=== PATIENT | male | born 1940 | race African-American/Black ===

== ENCOUNTER 2016-11-14 09:45 | Emergency (ER) | payer BC, OTHER ==
[2016-11-14 09:55] VITALS: TEMP 98.1; BMI 25.8
[2016-11-14] MEDS ORDERED: ONDANSETRON 4 MG/2 ML VIAL ONE (10:30)
[2016-11-14] MEDS ORDERED: ONDANSETRON 4 MG/2 ML VIAL IVPUSH ONE (10:34)
--- NOTE | 2016-11-14 10:38 | PDOC ---
History of Present Illness - General History Source: Patient Exam Limitations: No Limitations - History of Present Illness Initial Comments: 11/14/16 10:52 The patient is a 76 year old male, with a significant past medical history of HTN and prostate CA (iIn remission past 2 years), who presents to the emergency department with a headache, nausea, vomit and diarrhea for the past 3 days. He also notes that his appetite has decreased. He describes his headache as ranging from mild to moderate, localized on the islam. He denies any radiation of the pain or modifying factors. He denies any visual changes. He states that he took Cialis medication prior to the onset of symptoms. He denies any history of headaches. He denies any recent travel or sick contacts. He does note that he has a family history of aneurysm. The patient denies chest pain, shortness of breath and dizziness. Denies fever, chills, and constipation. Denies dysuria, frequency, urgency and hematuria. Allergies: None Past surgical history: Prostate resection Social history: Alcohol use. Former smoker, pack a day smoker (20 year use)( Quit 20 years ago) <Shantanu Orozco - Last Filed: 11/14/16 10:52> <Yamileth Mccain - Last Filed: 11/14/16 15:57> - General Chief Complaint: Headache Stated Complaint: HEADACHE Time Seen by Provider: 11/14/16 10:23 Past History <Shantanu Orozco - Last Filed: 11/14/16 10:52> - Past Medical History Cancer: Yes (Prostate cancer) HTN: Yes - Psycho/Social/Smoking Cessation Hx Suicidal Ideation: No Smoking History: Former smoker Have you smoked in the past 12 months: No If you are a former smoker, when did you quit?: 20 yrs Information on smoking cessation initiated: No Hx Alcohol Use: Yes Drug/Substance Use Hx: No <Yamileth Mccain - Last Filed: 11/14/16 15:57> - Past Medical History Allergies/Adverse Reactions: Allergies Allergy/AdvReac Type Severity Reaction Status Date / Time No Known Allergies Allergy Verified 11/14/16 10:39 Home Medications: Ambulatory Orders Aspirin [ASA -] 81 mg PO DAILY 11/14/16 Lisinopril/Hydrochlorothiazide [Lisinopril-Hctz 20-12.5 mg Tab] 1 each PO DAILY 11/14/16 Review of Systems - Review of Systems Able to Perform ROS?: Yes Comments:: 11/14/16 10:53 GENERAL/CONSTITUTIONAL: No fever or chills. No weakness. HEAD, EYES, EARS, NOSE AND THROAT: No change in vision. No ear pain or discharge. No sore throat. CARDIOVASCULAR: No chest pain or shortness of breath RESPIRATORY: No cough, wheezing, or hemoptysis. GASTROINTESTINAL: (+) Nausea, vomiting, diarrhea. No constipation. GENITOURINARY: No dysuria, frequency, or change in urination. MUSCULOSKELETAL: No joint or muscle swelling or pain. No neck or back pain. SKIN: No rash NEUROLOGIC: (+) Headache. No vertigo, loss of consciousness, or change in strength/sensation. ENDOCRINE: No increased thirst. No abnormal weight change HEMATOLOGIC/LYMPHATIC: No anemia, easy bleeding, or history of blood clots. ALLERGIC/IMMUNOLOGIC: No hives or skin allergy. <Shantanu Orozco - Last Filed: 11/14/16 10:52> *Physical Exam - Vital Signs Last Vital Signs Temp Pulse Resp BP Pulse Ox 98.1 F 94 H 14 143/98 98 11/14/16 09:49 11/14/16 09:49 11/14/16 09:49 11/14/16 09:49 11/14/16 09:49 - Physical Exam Comments: 11/14/16 10:53 GENERAL: Awake, alert, and fully oriented, in no acute distress HEAD: No signs of trauma, normocephalic, atraumatic EYES: PERRLA, EOMI, sclera anicteric, conjunctiva clear ENT: Auricles normal inspection, hearing grossly normal, nares patent, oropharynx clear without exudates. Moist mucosa NECK: Normal ROM, supple, no lymphadenopathy, JVD, or masses LUNGS: No distress, speaks full sentences, clear to auscultation bilaterally HEART: Regular rate and rhythm, normal S1 and S2, no murmurs, rubs or gallops, peripheral pulses normal and equal bilaterally. ABDOMEN: Soft, nontender, normoactive bowel sounds. No guarding, no rebound. No masses EXTREMITIES: Normal inspection, Normal range of motion, no edema. No clubbing or cyanosis. NEUROLOGICAL: Cranial nerves II through XII grossly intact. Normal speech, normal gait, no focal sensorimotor deficits SKIN: Warm, Dry, normal turgor, no rashes or lesions noted. <Shantanu Orozco - Last Filed: 11/14/16 10:52> - Vital Signs Last Vital Signs Temp Pulse Resp BP Pulse Ox 98.1 F 94 H 14 143/98 98 11/14/16 09:49 11/14/16 09:49 11/14/16 09:49 11/14/16 09:49 11/14/16 09:49 <Yamileth Mccain - Last Filed: 11/14/16 15:57> ED Treatment Course - LABORATORY CBC & Chemistry Diagram: 11/14/16 10:37 11/14/16 10:37 <Shantanu Orozco - Last Filed: 11/14/16 10:52> - LABORATORY CBC & Chemistry Diagram: 11/14/16 10:37 11/14/16 10:37 <Yamileth Mccain - Last Filed: 11/14/16 15:57> Medical Decision Making - Medical Decision Making 11/14/16 15:53 Case d/w Dr. Rios, vascular surgery. He will evaluate. Recommended rheumatology evaluation in addition. I discussed with patient, who states that his has spinal stenosis, has difficulty walking, needs assistance to get home. I explained that if this is truly temporal arteritis, it may progress if not treated, may lead to blindness. He states that he can return to the hospital as soon as his is safely home. <Yamileth Mccain - Last Filed: 11/14/16 15:57> *DC/Admit/Observation/Transfer - Attestations Scribe Attestion: 11/14/16 10:53 Documentation prepared by Shantanu Orozco, acting as medical secretary receptionist for Yamileth Mccain MD <Shantanu Orozco - Last Filed: 11/14/16 10:52> - Discharge Dispostion Admit: No <Yamileth Mccain - Last Filed: 11/14/16 15:57> Diagnosis at time of Disposition: Headache Qualifiers: Headache type: unspecified Headache chronicity pattern: acute headache Intractability: not intractable Qualified Code(s): R51 - Headache - Discharge Dispostion Disposition: AGAINST MEDICAL ADVICE Condition at time of disposition: Stable - Patient Instructions Printed Discharge Instructions: DI for Headache Additional Instructions: PLEASE RETURN TO EMERGENCY DEPARTMENT IMMEDIATELY TO BE ADMITTED TO HOSPITAL
[2016-11-14 10:51] LABS: BASOPHIL 0.4 % (0-2.0); EOSINOPHIL 0.2 % (0-4.5); MCH 30.5 pg (25.7-33.7); MCHC 33.8 g/dl (32.0-35.9); MEAN CELL VOLUME 90.3 fl (80-96); MEAN PLT VOLUME 8.9 fl (7.5-11.1); PLATELET COUNT 225 K/MM3 (134-434); RDW 15.5 % (11.9-15.9); WHITE BLOOD COUNT 8.8 K/mm3 (4.0-10.0)
[2016-11-14 11:12] LABS: ALBUMIN 4.5 g/dl (3.4-5.0); ALK PHOS 80 U/L (45-117); BILIRUBIN,TOTAL 0.7 mg/dL (0.2-1.0); CALCIUM 9.8 mg/dL (8.5-10.1); CO2 27 mmol/L (21-32); CREATININE 2.3 mg/dL (0.7-1.3); GLUCOSE,RANDOM 142 mg/dL (74-106); SGPT/ALT 25 U/L (12-78); TOT PROT 8.4 g/dl (6.4-8.2)
[2016-11-14 11:19] LABS: SGOT/AST 45 U/L (15-37)
[2016-11-14 11:29] LABS: URINE APPEARANCE CLEAR; URINE BILIRUBIN NEGATIVE (NEGATIVE); URINE BLOOD 1+ (NEGATIVE); URINE COLOR YELLOW; URINE GLUCOSE (UA) NEGATIVE (NEGATIVE); URINE KETONE TRACE (NEGATIVE); URINE LEUK ESTERASE NEGATIVE (NEGATIVE); URINE NITRITE NEGATIVE (NEGATIVE); URINE UROBILINOGEN NEGATIVE mg/dL (0.2-1.0)
[2016-11-14 11:47] LABS: URINE PROTEIN 1+ (NEGATIVE)
[2016-11-14 11:49] LABS: URINE HYALINE CAST 1 /lpf; URINE RBC 2 /hpf (0-3); URINE WBC 1 /hpf (3-5)
[2016-11-14 12:36] LABS: ANION GAP 12 (8-16)
[2016-11-14] MEDS ORDERED: ACETAMINOPHEN 1000 MG/100 ML VIAL (NON FORMULARY) IVPB ONE (13:37)
[2016-11-14 15:45] LABS: C-REACTIVE PROTEIN < 0.3 MG/DL (0.00-0.3)
[2016-11-14 15:58] VITALS: BP 142/92; PULSE 89
--- NOTE | 2016-11-15 17:13 | CONSULT ---
Consult Consult Specialty:: Rheumatology - History of Present Illness History of Present Illness: 76yo male with history of prostate cancer in remission and hypertension, admitted with headache in the left temporal region. HPI. The patient reports that 4 days ago he developed severe throbbing pain in the left temporal region accompanied by nausea and diarrhea that lasted 2 days. He did not respond to aspirin and came yesterday to the ER. Laboratory work- up revealed ESR of 35. Yesterday he improved partially with Acetaminophen and in the evening he received Prednisone 60 mg/d. He also received Zofran - nausea resolved. Today he has had only mild discomfort in the temporal region. He denies joint pain, hjaw pain, jaw claudication, changes in his vision, general malaise, shortness of breath or fever. CT scan of the head reported with no acute intracranial pathology. No change compared to 01/24/09 study: diffuse right mastoid and right ear cavity fluid opacification. - History Source History Provided By: Patient Limitations to Obtaining History: No Limitations - Past Medical History Cardio/Vascular: Yes: HTN - Alcohol/Substance Use Hx Alcohol Use: Yes - Smoking History Smoking history: Former smoker Have you smoked in the past 12 months: No If you are a former smoker, when did you quit?: 20 yrs Home Medications - Allergies Allergies/Adverse Reactions: Allergies Allergy/AdvReac Type Severity Reaction Status Date / Time No Known Allergies Allergy Verified 11/14/16 18:44 - Home Medications Home Medications: Ambulatory Orders Aspirin [ASA -] 81 mg PO DAILY 11/14/16 Lisinopril/Hydrochlorothiazide [Lisinopril-Hctz 20-12.5 mg Tab] 1 each PO DAILY 11/14/16 Family Disease History - Family Disease History Other Family History: History of brain aneurysms in his family Review of Systems - Review of Systems Constitutional: reports: No Symptoms Eyes: reports: No Symptoms Neck: reports: No Symptoms Cardiovascular: reports: No Symptoms Gastrointestinal: reports: Diarrhea, Nausea, Vomiting Genitourinary: reports: No Symptoms Musculoskeletal: reports: No Symptoms Neurological: reports: Other (See HPI) Physical Exam Vital Signs: Vital Signs Temperature 98.1 F 11/14/16 09:49 Pulse Rate 89 11/14/16 15:57 Respiratory Rate 20 11/14/16 15:57 Blood Pressure 142/92 11/14/16 15:57 O2 Sat by Pulse Oximetry (%) 98 11/14/16 15:57 Constitutional: Yes: No Distress Eyes: Yes: WNL HENT: Yes: WNL Neck: Yes: WNL Cardiovascular: Yes: WNL Respiratory: Yes: WNL Gastrointestinal: Yes: WNL Musculoskeletal: Yes: Other (Temporal arteries normal in consistency and pulsation and not tender. No active joints.) Neurological: Yes: WNL Labs: CBC, BMP 11/14/16 10:37 11/14/16 10:37 Problem List - Problems (1) Temporal headache Assessment/Plan: Four day history of temporal headache, nausea, vomiting, diarrhea and ESR of 35. Etiology to be determined. Temporal arteritis is a possibility, however not very likely. The patient is scheduled to have a temporal artery biopsy tomorrow and he is on Prednisone 60 mg/d. After the biopsy, as outpatient, evaluate tapering down steroids. Code(s): R51 - HEADACHE
== END 2016-11-14 15:50 | disposition left against medical advice (07) ==
LOC: JER 09:45
PROC: 3E033NZ Introduction of Analgesics, Hypnotics, Sedatives into Peripheral Vein, Percutaneous Approach (ICD-10-PCS; principal; 2016-11-14)
PROC: 3E033GC Introduction of Other Therapeutic Substance into Peripheral Vein, Percutaneous Approach (ICD-10-PCS; 2016-11-14)
DX: R51 Headache (principal)
CPT/HCPCS: 36415; 70450-TC; 80053; 81003; 81015; 83690; 85025; 85651; 86140; 87086; 96374; 96375; 99283-25

== ENCOUNTER 2016-11-14 18:35 | Inpatient (IN) | payer OTHER ==
--- NOTE | 2016-11-14 20:31 | PDOC ---
History of Present Illness - General Chief Complaint: Headache Stated Complaint: PCP ADMIT Time Seen by Provider: 11/14/16 20:08 Past History - Past Medical History Allergies/Adverse Reactions: Allergies Allergy/AdvReac Type Severity Reaction Status Date / Time No Known Allergies Allergy Verified 11/14/16 18:44 Home Medications: Ambulatory Orders Aspirin [ASA -] 81 mg PO DAILY 11/14/16 Lisinopril/Hydrochlorothiazide [Lisinopril-Hctz 20-12.5 mg Tab] 1 each PO DAILY 11/14/16 Cancer: Yes (Prostate cancer) HTN: Yes - Psycho/Social/Smoking Cessation Hx Suicidal Ideation: No Smoking History: Former smoker Have you smoked in the past 12 months: No If you are a former smoker, when did you quit?: 20 yrs Information on smoking cessation initiated: No Hx Alcohol Use: Yes Drug/Substance Use Hx: No Substance Use Type: None *Physical Exam - Vital Signs Last Vital Signs Temp Pulse Resp BP Pulse Ox 98 F 89 14 153/90 100 11/14/16 18:38 11/14/16 18:38 11/14/16 18:38 11/14/16 18:38 11/14/16 18:38 *DC/Admit/Observation/Transfer Diagnosis at time of Disposition: Temporal headache Headache Qualifiers: Headache type: primary stabbing headache Qualified Code(s): G44.85 - Primary stabbing headache - Discharge Dispostion Admit: Yes
[2016-11-14] MEDS ORDERED: predniSONE 20 MG TABLET (UD) PO ONE (20:43)
--- NOTE | 2016-11-14 20:49 | PN ---
Teaching Attending Note Name of Resident: Ankur Taveras ATTENDING PHYSICIAN STATEMENT I saw and evaluated the patient. I reviewed the resident's note and discussed the case with the resident. I agree with the resident's findings and plan as documented. SUBJECTIVE: 76 M with pmhx of prostate ca, hld, htn . States he had a headache since Sunday. Notes MCKINLEY is concentrated in L. Temporal area. States he has no visual changes or visual loss. No cp or pressure. No n/v/d. Notes that his pain was relieved in ED, but has started to come back. OBJECTIVE: Physical: VS: Vital Signs Period Temp Pulse Resp BP Sys/Yusuf Pulse Ox Last 24 Hr 98 F 89 14 153/90 100 GEN: NADM, Resting in bed HEENT: NCAT, PERRL, Throat without erythema or exudates CARD: RRR S1, S2 RESP: CTAB ABD: BSX4, NTD to palpation EXT:-C/C/E LABS Done in AM 11/14, noted in chart ESR 35 CR 2. Home Medications Medication Instructions Recorded Aspirin [ASA -] 81 mg PO DAILY 11/14/16 Lisinopril/Hydrochlorothiazide 1 each PO DAILY 11/14/16 [Lisinopril-Hctz 20-12.5 mg Tab] ASSESSMENT AND PLAN: 76 M with pmxh of who presents with MCKINLEY located in the Temporal area, being admitted for Temporal Arteritis 1.) Temporal Arteritis - Prednisone 60mg X1 - Vascular consult - Asa 81mg - Type and screen 2.) HTN - C/W home meds 3.) CKD - Base Cr 2.3 4.) Dvt Ppx - Low- Mod risk - SCD Place in Med- SX
[2016-11-14] MEDS ORDERED: ACETAMINOPHEN 325 MG TABLET (FP) PO PRN (20:51)
[2016-11-14] MEDS ORDERED: predniSONE 20 MG TABLET (UD) ONE (21:10)
--- NOTE | 2016-11-14 21:46 | HP ---
CHIEF COMPLAINT: PCP: HISTORY OF PRESENT ILLNESS: Pt is a 76yo M with a history of prostate cancer in remission (s/p TURP and radiation therapy), hypertension, hyperlipidemia and a significant family history of brain aneurysms presents to the ED due to stabbing L headaches temporally located. He states the pain first started on Sunday (11/11) however did not come to the ER until now due to increasing pain. He states he took an extra strength Tylenol on 11/12 and 11/13 that did NOT help the pain at all. He originally had nausea, however it is currently resolved after Zofran being administered. He denies any neck pain, back pain, focal neuro deficits, constitutional symptoms, hearing changes, and visual disturbances ER course was notable for: (1) Prednisone 60mg administered ONCE (2) Zofran 4mg IVP, Acetaminophen 1000mg once (3) CBC, CMP revealing Cr of 2.3 (last known Cr of 2.3 in 2014) and ESR 35 (4) Head CT without contrast -- No evidence of acute intracranial pathology; in comparison of 2009 study, diffuse right mastoid and right middle ear cavity fluid opacification noted once again Recent Travel: Denies PAST MEDICAL HISTORY: Hypertension Hyperlipidemia Prostate Cancer (dx'd 2014) s/p TURP and radiation therapy PAST SURGICAL HISTORY: TURP Rotator Cuff repair (L side; 2006) Social History: Smoking: Alcohol: Drugs: Family History: Mother -- -- "brain aneurysm" Sister -- alive -- "Brain aneurysm" x2 s/p interventions Allergies No Known Allergies Allergy (Verified 11/14/16 18:44) HOME MEDICATIONS: Home Medications Medication Instructions Recorded Aspirin [ASA -] 81 mg PO DAILY 11/14/16 Lisinopril/Hydrochlorothiazide 1 each PO DAILY 11/14/16 [Lisinopril-Hctz 20-12.5 mg Tab] REVIEW OF SYSTEMS CONSTITUTIONAL: Absent: fever, chills, diaphoresis, generalized weakness, malaise, loss of appetite, weight change HEENT: Absent: rhinorrhea, nasal congestion, throat pain, throat swelling, difficulty swallowing, mouth swelling, ear pain, eye pain, visual changes CARDIOVASCULAR: Absent: chest pain, syncope, palpitations, irregular heart rate, lightheadedness , peripheral edema RESPIRATORY: Absent: cough, shortness of breath, dyspnea with exertion, orthopnea, wheezing, stridor, hemoptysis GASTROINTESTINAL: Absent: abdominal pain, abdominal distension, nausea, vomiting, diarrhea, constipation, melena, hematochezia GENITOURINARY: Absent: dysuria, frequency, urgency, hesitancy, hematuria, flank pain, genital pain MUSCULOSKELETAL: Absent: myalgia, arthralgia, joint swelling, back pain, neck pain SKIN: Absent: rash, itching, pallor NEUROLOGIC: Absent: focal weakness or paresthesias, dizziness, unsteady gait PHYSICAL EXAMINATION GENERAL: Awake, alert, and fully oriented, in no acute distress. HEAD: Normal with no signs of trauma. Pain with palpation to left temporal area. EYES: Pupils equal, round and reactive to light, extraocular movements intact, peripheral visual irizarry intact EARS, NOSE, THROAT: Moist mucous membranes. NECK: Normal range of motion. No JVD LUNGS: Breath sounds equal, clear to auscultation bilaterally. No wheezes, and no crackles. No accessory muscle use. HEART: Regular rate and rhythm, normal S1 and S2 without murmur, rub or gallop. ABDOMEN: Soft, nontender, not distended, normoactive bowel sounds, no guarding, no rebound, no masses. No hepatomegaly or splenomegaly. NEUROLOGICAL: No focal neurological deficits appreciated. AO x3. PSYCHIATRIC: Cooperative. Appropriate mood and affect. SKIN: Warm, dry, normal turgor, no rashes or lesions noted ASSESSMENT/PLAN: 76yo M with nonradiating L stabbing temporal pain unrelieved by Tylenol. Denies visual changes. Family history of multiple brain aneurysms; CT negative for acute intracranial pathology 1) Suspected Temporal arteritis; ESR 35 --Prednisone 60mg PO qDaily --Consulted Dr. Chaparro Rios for L temporal artery biopsy --Will be NPO after midnight --SCDs applied both legs 2) Elevated Cr --Cr 2.3; previous known to be 2.3 in 2015 --Stable; most likely from previous prostate Ca and interventions FEN Fluids: Pt PO tolerating Electrolytes: No electrolyte abnormalities Nutrition: Full Diet currently; NPO after midnight PPX DVT: SCDs applied both legs GI: not needed at current time Dispo: Admit M/S floor for Biopsy tomorrow Visit type - Emergency Visit Emergency Visit: Yes ED Registration Date: 11/14/16 Care time: The patient presented to the Emergency Department on the above date and was hospitalized for further evaluation of their emergent condition. - New Patient This patient is new to me today: Yes Date on this admission: 11/14/16 - Critical Care Critical Care patient: No
[2016-11-14 23:57] VITALS: BMI 24.7
[2016-11-15 08:29] LABS: BASOPHIL 0.1 % (0-2.0); MCH 30.7 pg (25.7-33.7); MCHC 34.4 g/dl (32.0-35.9); MEAN CELL VOLUME 89.1 fl (80-96); MEAN PLT VOLUME 8.5 fl (7.5-11.1); NEUTROPHILS 89.9 % (42.8-82.8); PLATELET COUNT 198 K/MM3 (134-434); RDW 14.9 % (11.9-15.9); WHITE BLOOD COUNT 6.5 K/mm3 (4.0-10.0)
[2016-11-15 08:40] LABS: INR 1.12 (0.82-1.09); PROTHROMBIN TIME (PATIENT) 12.4 SEC (9.98-11.88)
--- NOTE | 2016-11-15 08:42 | MSN ---
Progress Note (short form) - Note Progress Note: Pt seen and examined at bedside, no acute overnight events. States his L temporal pain is much improved, rates pain 2/10 (from 7/10 on admission). States he has tinnitus but this is unchanged from baseline. Denies new or worsening h/a, chest pain, SOB, palpitations, nausea, vomiting, extremity numbness or tingling or leg pain. States he has some belly pain but blames it on not eating for the last 12 hrs. Last Vital Signs Temp Pulse Resp BP Pulse Ox 98.1 F 74 18 142/76 98 11/15/16 07:59 11/15/16 07:59 11/15/16 07:59 11/15/16 07:59 11/14/16 23:00 PE: Constitutional: AO x3, in no acute distress Head: atraumatic, normocephalic, moist mucus membranes Eyes: EOM intact, PERRLA Heart: RRR Lungs: expiratory low pitched wheezing diffusely Abd: mild tenderness elicited with palpation, normoactive bowel sounds in all 4 quadrants, no hepto/splenomegaly appreciated Extremities: 2+ radial pulses b/l, 2+ DP pulses b/l, no LE edema Laboratory Results - last 24 hr 11/15/16 11/15/16 11/15/16 06:30 06:30 06:30 WBC 6.5 RBC 4.02 Hgb 12.3 Hct 35.8 MCV 89.1 MCH 30.7 MCHC 34.4 RDW 14.9 Plt Count 198 MPV 8.5 Neutrophils % 89.9 H Lymphocytes % 7.9 L Monocytes % 2.1 L Eosinophils % 0.0 D Basophils % 0.1 INR 1.12 PTT (Actin FS) 28.3 Sodium 139 Potassium 3.8 Chloride 102 Carbon Dioxide 28 Anion Gap 9 BUN 23 H Creatinine 2.0 H Random Glucose 134 H Calcium 9.0 Triglycerides 58 Cholesterol 235 H Total LDL Cholesterol 160 H HDL Cholesterol 54 Urine Protein Urine Creatinine 11/15/16 11/15/16 11/15/16 08:55 11:47 11:47 WBC RBC Hgb Hct MCV MCH MCHC RDW Plt Count MPV Neutrophils % Lymphocytes % Monocytes % Eosinophils % Basophils % INR PTT (Actin FS) Sodium Potassium Chloride Carbon Dioxide Anion Gap BUN Creatinine Random Glucose Calcium Triglycerides Cancelled Cholesterol Cancelled Total LDL Cholesterol Cancelled HDL Cholesterol Cancelled Urine Protein 52 Urine Creatinine 317.0 Assessment: 76 y.o. M with PHMX of HTN, HLD, prostate cancer (s/p TURP and radiation) presented to the ED for stabbing temporal h/a, admitted for temporal artery biopsy and pain management. Plan: 1. Temporal headache: possible due to temporal arteritis vs migraine vs tension h/a vs cluster h/a. Dr. Marr (rheumatology) and Dr. Rios (vascular surgery) consulted for biopsy, cont prednisone 60mg 2. SAE: possible elevated baseline creatinine vs vasculitis affecting the kidneys, creatinine improved from 2.3 to 2.0. Will contact pt PCP for baseline creatinine level, ordered urine electrolytes to discover if pre/post renal injury 3. DVT prophylaxis: SCDs both legs 4. HLD: cholesterol 235, LDL 160, HDL 54, TG 58. Cardiovascular risk calculated at 29% w/out statin and 9% w/mod-high intensity statin. Discussed with patient, states he has had elevated levels in the past and is currently trying to manage with diet and exercise.
[2016-11-15 08:43] LABS: ACTIVATED PTT 28.3 SECONDS (26.9-34.4)
[2016-11-15 09:01] LABS: ANION GAP 9 (8-16); CO2 28 mmol/L (21-32); GLUCOSE,RANDOM 134 mg/dL (74-106)
[2016-11-15 09:24] LABS: CHOLESTEROL 235 mg/dL (50-200)
[2016-11-15 09:26] LABS: LDL CHOLESTEROL (ONLY SJRH) 160 mg/dL (5-100)
[2016-11-15] MEDS: HYDROCHLOROTHIAZIDE 12.5 MG CAPSULE (FP) PO SCH (10:05)
[2016-11-15] MEDS: ASPIRIN 81 MG CHEWABLE TABLETS PO SCH (10:05)
[2016-11-15] MEDS: LISINOPRIL 20 MG TABLET (FP) PO SCH (10:05)
--- NOTE | 2016-11-15 15:53 | PN ---
Physical Exam: SUBJECTIVE: Patient seen and examined No acute overnight events. Left temporal pain has improved on prednisone. OBJECTIVE: Vital Signs Period Temp Pulse Resp BP Sys/Yusuf Pulse Ox Last 24 Hr 97.9 F-98.1 F 64-78 16-18 142-150/76-77 97-98 GENERAL: Awake, alert, and fully oriented, in no acute distress. HEAD: Normal with no signs of trauma. Pain with palpation to left temporal area. EYES: Pupils equal, round and reactive to light, extraocular movements intact, peripheral visual irizarry intact EARS, NOSE, THROAT: Moist mucous membranes. NECK: Normal range of motion. No JVD LUNGS: Breath sounds equal, clear to auscultation bilaterally. mild expiratory wheezing. No crackles. No accessory muscle use. HEART: Regular rate and rhythm, normal S1 and S2 without murmur, rub or gallop. ABDOMEN: Soft, nontender, not distended, normoactive bowel sounds, no guarding, no rebound, no masses. No hepatomegaly or splenomegaly. NEUROLOGICAL: No focal neurological deficits appreciated. A&O x3. PSYCHIATRIC: Cooperative. Appropriate mood and affect. SKIN: Warm, dry, normal turgor, no rashes or lesions noted Laboratory Results - last 24 hr 11/15/16 11/15/16 11/15/16 06:30 06:30 06:30 WBC 6.5 RBC 4.02 Hgb 12.3 Hct 35.8 MCV 89.1 MCH 30.7 MCHC 34.4 RDW 14.9 Plt Count 198 MPV 8.5 Neutrophils % 89.9 H Lymphocytes % 7.9 L Monocytes % 2.1 L Eosinophils % 0.0 D Basophils % 0.1 INR 1.12 PTT (Actin FS) 28.3 Sodium 139 Potassium 3.8 Chloride 102 Carbon Dioxide 28 Anion Gap 9 BUN 23 H Creatinine 2.0 H Random Glucose 134 H Calcium 9.0 Triglycerides 58 Cholesterol 235 H Total LDL Cholesterol 160 H HDL Cholesterol 54 Urine Protein 11/15/16 11/15/16 08:55 11:47 WBC RBC Hgb Hct MCV MCH MCHC RDW Plt Count MPV Neutrophils % Lymphocytes % Monocytes % Eosinophils % Basophils % INR PTT (Actin FS) Sodium Potassium Chloride Carbon Dioxide Anion Gap BUN Creatinine Random Glucose Calcium Triglycerides Cancelled Cholesterol Cancelled Total LDL Cholesterol Cancelled HDL Cholesterol Cancelled Urine Protein 52 Active Medications Generic Name Dose Route Start Last Admin Trade Name Freq PRN Reason Stop Dose Admin Acetaminophen 650 mg 11/14/16 20:51 Tylenol - PO Q4H PRN FEVER OR PAIN Aspirin 81 mg 11/15/16 10:00 11/15/16 10:05 Asa - PO 81 mg DAILY NEHEMIAS Administration Hydrochlorothiazide 12.5 mg 11/15/16 10:00 11/15/16 10:05 Hctz - PO 12.5 mg DAILY NEHEMIAS Administration Lisinopril 20 mg 11/15/16 10:00 11/15/16 10:05 Prinivil PO 20 mg DAILY NEHEMIAS Administration Prednisone 60 mg 11/15/16 20:00 Deltasone - PO DAILY NEHEMIAS ASSESSMENT/PLAN: 76 yo M with pmh of HTN, HLD, prostate cancer (s/p TURP and radiation) presented to the ED for temporal headache with an ESR of 35 admitted for possible temporal arteritis. Problem List - Problems (1) Temporal headache Assessment/Plan: Continue Prednisone 60 mg Vascular and Rheum consulted, Dr. Rios/[facility] Will f/u regarding potential biopsy. (2) SAE (acute kidney injury) Assessment/Plan: Creatinine improved from 2.3 to 2.0 Unsure of baseline Will call PMD tomorrow to see baseline whether this is SAE vs CKD. Urine studies ordered (3) HLD (hyperlipidemia) Assessment/Plan: Cholesterol 235 LDL 160 Pt has hx of hld on diet and exercise therapy. Will f/u outpatient with PCP. (4) DVT prophylaxis Assessment/Plan: SCDs both legs FEN/GI No fluids Electrolytes wnl NPO for possible procedure awaiting Dr. Rios Visit type - Emergency Visit Emergency Visit: No - New Patient This patient is new to me today: Yes Date on this admission: 11/15/16 - Critical Care Critical Care patient: No
--- NOTE | 2016-11-15 17:16 | PN ---
Teaching Attending Note Name of Resident: Alexis Rob ATTENDING PHYSICIAN STATEMENT I saw and evaluated the patient. I reviewed the resident's note and discussed the case with the resident. I agree with the resident's findings and plan as documented. SUBJECTIVE: Pain is much better. OBJECTIVE: Vital Signs Period Temp Pulse Resp BP Sys/Yusuf Pulse Ox Last 24 Hr 97.9 F-98.1 F 64-89 14-18 142-153/76-90 97-100 ASSESSMENT AND PLAN: This is a 76-year-old man with a history of HTN, hyperlipidemia, CKD, prostate cancer who presented to the ER with a temporal headache. 1. Possible temporal arteritis - Headache is better with Prednisone - Continue aspirin, Prednisone - Vascular surgery consult for biopsy - Rheumatology consult 2. HTN - Continue Lisinopril, HCTZ 3. Hyperlipidemia 4. Stage 4 CKD - Stable 5. Prostate cancer, history of prostatectomy
[2016-11-15] MEDS: predniSONE 20 MG TABLET (UD) PO SCH (19:54)
--- NOTE | 2016-11-15 20:35 | CONSULT ---
Consult - Alcohol/Substance Use Hx Alcohol Use: Yes - Smoking History Smoking history: Former smoker Have you smoked in the past 12 months: No If you are a former smoker, when did you quit?: 20 yrs Home Medications - Allergies Allergies/Adverse Reactions: Allergies Allergy/AdvReac Type Severity Reaction Status Date / Time No Known Allergies Allergy Verified 11/14/16 18:44 - Home Medications Home Medications: Ambulatory Orders Aspirin [ASA -] 81 mg PO DAILY 11/14/16 Lisinopril/Hydrochlorothiazide [Lisinopril-Hctz 20-12.5 mg Tab] 1 each PO DAILY 11/14/16 Physical Exam Vital Signs: Vital Signs Temperature 98.0 F 11/15/16 15:36 Pulse Rate 78 11/15/16 15:36 Respiratory Rate 18 11/15/16 15:36 Blood Pressure 150/77 11/15/16 08:41 O2 Sat by Pulse Oximetry (%) 97 11/15/16 09:00 Labs: CBC, BMP 11/15/16 06:30 11/15/16 06:30 Assessment/Plan Vascular Surgery Pt is a 76yo M with a history of prostate cancer in remission (s/p TURP and radiation therapy), hypertension, hyperlipidemia and a significant family history of brain aneurysms presents to the ED due to stabbing L headaches temporally located. He states the pain first started on Sunday (11/11) however did not come to the ER until now due to increasing pain. He states he took an extra strength Tylenol on 11/12 and 11/13 that did NOT help the pain at all. He originally had nausea, however it is currently resolved after Zofran being administered. He denies any neck pain, back pain, focal neuro deficits, constitutional symptoms, hearing changes, and visual disturbances ER course was notable for: (1) Prednisone 60mg administered ONCE (2) Zofran 4mg IVP, Acetaminophen 1000mg once (3) CBC, CMP revealing Cr of 2.3 (last known Cr of 2.3 in 2014) and ESR 35 (4) Head CT without contrast -- No evidence of acute intracranial pathology; in comparison of 2009 study, diffuse right mastoid and right middle ear cavity fluid opacification noted once again Recent Travel: Denies PAST MEDICAL HISTORY: Hypertension Hyperlipidemia Prostate Cancer (dx'd 2014) s/p TURP and radiation therapy PAST SURGICAL HISTORY: TURP Rotator Cuff repair (L side; 2006) Social History: Smoking: Alcohol: Drugs: Family History: Mother -- -- "brain aneurysm" Sister -- alive -- "Brain aneurysm" x2 s/p interventions Allergies No Known Allergies Allergy (Verified 11/14/16 18:44) HOME MEDICATIONS: Home Medications Medication Instructions Recorded Aspirin [ASA -] 81 mg PO DAILY 11/14/16 Lisinopril/Hydrochlorothiazide 1 each PO DAILY 11/14/16 [Lisinopril-Hctz 20-12.5 mg Tab] PE Head - NC/AT Lung - cTA Heart - rRR abd - soft,nt,nd ext - warm , pink. A/P Left sided headaches. On prednisone. Will need temporal artery biopsy in am. Elevated ESR Vin Rios DO
[2016-11-16] MEDS ORDERED: LIDOCAINE HCL 1%, 10 MG/ML (50 mL VIAL) IJ ONE
[2016-11-16 08:00] LABS: BASOPHIL 0.1 % (0-2.0); MCH 30.8 pg (25.7-33.7); MCHC 33.9 g/dl (32.0-35.9); MEAN PLT VOLUME 8.7 fl (7.5-11.1); NEUTROPHILS 91.3 % (42.8-82.8); PLATELET COUNT 225 K/MM3 (134-434)
[2016-11-16 08:48] LABS: ANION GAP 10 (8-16); CALCIUM 10.1 mg/dL (8.5-10.1); CO2 27 mmol/L (21-32); CREATININE 2.2 mg/dL (0.7-1.3); GLUCOSE,RANDOM 138 mg/dL (74-106)
[2016-11-16] MEDS: LISINOPRIL 20 MG TABLET (FP) PO SCH (09:47)
[2016-11-16] MEDS: ASPIRIN 81 MG CHEWABLE TABLETS PO SCH (09:47)
[2016-11-16] MEDS: HYDROCHLOROTHIAZIDE 12.5 MG CAPSULE (FP) PO SCH (09:47)
[2016-11-16] MEDS: predniSONE 20 MG TABLET (UD) PO SCH (09:47)
[2016-11-16] MEDS ORDERED: PROMETHAZINE HCL 25 MG/1 ML VIAL IVPUSH PRN ×2 (12:28→14:51)
[2016-11-16] MEDS ORDERED: ONDANSETRON 4 MG/2 ML VIAL IVPUSH PRN ×2 (12:28→14:51)
[2016-11-16] MEDS ORDERED: LACTATED RINGERS SOLUTION 1,000 ML IV SCH ×2 (12:30→14:51)
[2016-11-16] MEDS ORDERED: MIDAZOLAM HCL 2 MG/2 ML SINGLE DOSE VIAL ONE (12:49)
[2016-11-16] MEDS ORDERED: LIDOCAINE HCL 1%, 10 MG/ML (20ML VIAL) ONE (13:39)
--- NOTE | 2016-11-16 14:05 | MSN ---
Progress Note (short form) - Note Progress Note: Pt seen and examined at bedside, no acute overnight events. Pt states he is feeling much better, denies any new or worsening h/a. Denies any chest pain, SOB , palpitations, nausea or vomiting, changes in vision or blurry vision. Last Vital Signs Temp Pulse Resp BP Pulse Ox 97.9 F 70 18 146/89 98 11/16/16 08:39 11/16/16 08:39 11/16/16 08:39 11/16/16 08:39 11/16/16 09:00 PE: Constitutional: Resting comfortably, in no acute distress. A&Ox3 Head: atraumatic normocephalic Eyes: PERRLA, EOM intact Heart: RRR Lungs: expiratory rhonic in the bases- L>R, improved from yesterday Laboratory Results - last 24 hr 11/15/16 11/15/16 11/16/16 11:47 11:47 06:30 WBC 10.0 D RBC 4.21 Hgb 13.0 Hct 38.3 MCV 91.0 MCH 30.8 MCHC 33.9 RDW 15.0 Plt Count 225 MPV 8.7 Neutrophils % 91.3 H Lymphocytes % 5.4 L D Monocytes % 3.2 L Eosinophils % 0.0 Basophils % 0.1 Sodium Potassium Chloride Carbon Dioxide Anion Gap BUN Creatinine Random Glucose Calcium Urine Protein 52 Urine Creatinine 317.0 11/16/16 06:30 WBC RBC Hgb Hct MCV MCH MCHC RDW Plt Count MPV Neutrophils % Lymphocytes % Monocytes % Eosinophils % Basophils % Sodium 140 Potassium 4.1 Chloride 103 Carbon Dioxide 27 Anion Gap 10 BUN 35 H D Creatinine 2.2 H Random Glucose 138 H Calcium 10.1 Urine Protein Urine Creatinine Assessment: 76 y.o. M with PMHx of prostate Ca (s/p TURP and radiation), HTN, and HLD, presented to the ED for severe temporal h/a, nausea, and vomiting; was admitted for temporal artery biopsy. Plan: 1. Temporal h/a: due to temporal arteritis (mildly elevated ESR + symptoms + age ) vs tension h/a vs migraine vs cluster h/a. Dr. Chapin consulted, agreed with biopsy and will follow up out pt, Dr. Rios performing the biopsy later today. Cont prednisone 60mg 2. SAE: possible that pt baseline creatinine is around 2.0, contact PCP and waiting to hear back. Urine electrolytes ordered to assess whether pre, post or medullary renal injury (FENa). - left a message for Dr. Schroeder at 2:00, and [phone] 3. HLD: Based on lipid panel cardiovascular risk calculated at 29% w/out statin and 9% w/mod-high intensity statin. Discussed with patient, will follow up out pt with PCP. 4. DVT prophylaxis: SCDs both legs
--- NOTE | 2016-11-16 14:22 | OP ---
Operative Note - Note: Operative Date: 11/16/16 Pre-Operative Diagnosis: R/O temporal arteritis Operation: left temporal artery biopsy Post-Operative Diagnosis: Same as Pre-op Surgeon: Vin Rios Anesthesia: Fractional Estimated Blood Loss (mls): 10 Operative Report Dictated: Yes
--- NOTE | 2016-11-16 14:39 | PN ---
Teaching Attending Note Name of Resident: Alexis Rob ATTENDING PHYSICIAN STATEMENT I saw and evaluated the patient. I reviewed the resident's note and discussed the case with the resident. I agree with the resident's findings and plan as documented. SUBJECTIVE: Patient had no complaints this morning. No further headache. OBJECTIVE: Vital Signs Period Temp Pulse Resp BP Sys/Yusuf Pulse Ox Last 24 Hr 97.9 F-98.4 F 70-83 18-20 146-152/88-97 97-98 HEART: S1S2, RRR LUNGS: Clear ABDOMEN: Soft, non-tender, non-distended normal BS EXTREMITIES: No edema ASSESSMENT AND PLAN: This is a 76-year-old man with a history of HTN, hyperlipidemia, CKD, prostate cancer who presented to the ER with a temporal headache. 1. Possible temporal arteritis - Headache is better with Prednisone - Continue aspirin, Prednisone - Left temporal artery biopsy done today 2. HTN - Continue Lisinopril, HCTZ 3. Hyperlipidemia 4. Stage 4 CKD - Stable 5. Prostate cancer, history of prostatectomy
[2016-11-16] MEDS ORDERED: ACETAMINOPHEN 325 MG TABLET (FP) PO PRN (14:51)
[2016-11-16 15:06] VITALS: BP 158/84; PULSE 62; TEMP 97.4
--- NOTE | 2016-11-16 16:05 | OP ---
DATE OF OPERATION: 11/16/2016 PREOPERATIVE DIAGNOSIS: Rule out temporal arteritis. POSTOPERATIVE DIAGNOSIS: Rule out temporal arteritis. PROCEDURE: Left temporal artery biopsy. SURGEON: Vin Noe DO ANESTHESIA: Fractional. BLOOD LOSS: 5 mL The patient is a 76-year-old male who comes in with left-sided headaches. He had an elevated ESR, and Rheumatology saw him and wanted to rule out temporal arteritis. Patient is on prednisone. Patient was consented for the procedure, understanding all risks, benefits, and alternatives; then taken to the operating room. Once in the operating room, was laid on the operative table in supine manner, and the area of the left temporal region was prepped and draped in a sterile surgical manner. We then felt for the temporal artery pulse, and a 4-cm incision was drawn with a skin marker. We then went ahead and injected 10 mL of % in the area. We then took a number-15 blade and made an incision. Bovie electrocautery was used to control hemostasis, and we were able to get down through all the subcutaneous tissue using Bovie electrocautery and get down to the fascia. We then opened the fascia and we were able to dissect out the temporal artery. Temporal artery was dissected anteriorly and posteriorly. Once we got an adequate amount of 2-3 cm of the temporal artery, we went ahead and took 4-0 silk, and we were able to tie off the temporal artery proximally and distally and then excise it and send it down to Pathology. The wound was then well irrigated. Thereafter, 3-0 Vicryl was used, and the subcutaneous tissue was approximated in interrupted manner and 4-0 Biosyn was used and the skin was closed in subcuticular running fashion. Area was wet and dried, and 2 Steri-Strips were placed. The patient tolerated the procedure with no complication. Patient transferred to PACU in stable condition. VIN NOE DO CULINARY ARTS INSTRUCTOR/[id number]
--- NOTE | 2016-11-16 17:02 | DS ---
Physical Exam: LABS Laboratory Results - last 24 hr Selected Entries 11/14/16 11/16/16 18:38 15:05 Temperature 98 F 97.4 F L Pulse Rate 89 62 Respiratory 14 16 Rate Blood Pressure 153/90 158/84 O2 Sat by Pulse 99 Oximetry (%) Laboratory Tests 11/15/16 11/15/16 11/16/16 06:30 06:30 06:30 WBC 6.5 10.0 D Creatinine 2.0 H Random Glucose 134 H Triglycerides 58 Cholesterol 235 H Total LDL Cholesterol 160 H HDL Cholesterol 54 11/16/16 06:30 WBC Creatinine 2.2 H Random Glucose 138 H Triglycerides Cholesterol Total LDL Cholesterol HDL Cholesterol HOSPITAL COURSE: Date of Admission:11/14/16 Date of Discharge: 11/16/16 Pt is a 76yo M with a history of prostate cancer in remission (s/p TURP and radiation therapy), hypertension, hyperlipidemia and a significant family history of brain aneurysms who presented to the ED due to stabbing L temporal headaches. The pain began 11/11 and patient came to the hospital on 11/14 due to increasing pain not resolved by tylenol. ER course was notable for: (1) Prednisone 60mg administered ONCE (2) Zofran 4mg IVP, Acetaminophen 1000mg once (3) CBC, CMP revealing Cr of 2.3 (last known Cr of 2.3 in 2014) and ESR 35 (4) Head CT without contrast -- No evidence of acute intracranial pathology; in comparison of 2008 study, diffuse right mastoid and right middle ear cavity fluid opacification noted once again Patient was admitted for possible temporal arteritis. Patient remained on prednisone 60 mg. He underwent a temporal artery biopsy on 11/16 and was discharged. Patient will follow up with his PCP regarding elevated LDL and cholesterol as well as Dr. Marr regarding the results of the biopsy. Patient will continue prednisone 60 mg until he visits with Dr. Marr. Minutes to complete discharge: 30 Discharge Summary Reason For Visit: TEMPORAL HEADACHE Current Active Problems Temporal headache (Acute) CKD (chronic kidney disease) (Chronic) HLD (hyperlipidemia) (Chronic) Condition: Stable - Instructions Diet, Activity, Other Instructions: You were in the hospital due to your headache. Please follow up with your primary care provider within 1 week Please follow up with Dr. aMrr within 1 week for biopsy results. Please follow up with a clinical informatics educator within 1 week. A referral has been provided for you. Continue the following medication: -Aspirin 81 mg by mouth daily -Lisinopril-HCTZ 20-12.5 mg by mouth daily Continue taking Prednisone 60 mg (3 tablets) by mouth per day until you see Dr. Marr. A [facility] been [facility] If you have chest pain, shortness of breath, or any new symptoms please come back to the hospital immediately. Referrals: Solomon Marques MD [Primary Care Provider] - Diogo Marr MD [Staff Physician] - Ankur Bailey MD [Staff Physician] - Disposition: HOME - Home Medications Comprehensive Discharge Medication List: Ambulatory Orders Aspirin [ASA -] 81 mg PO DAILY 11/14/16 Lisinopril/Hydrochlorothiazide [Lisinopril-Hctz 20-12.5 mg Tab] 1 each PO DAILY 11/14/16 Prednisone [Deltasone -] 60 mg PO DAILY #42 tablet 11/16/16 Problem List - Problems (1) Temporal headache (2) SAE (acute kidney injury) (3) HLD (hyperlipidemia) (4) DVT prophylaxis This patient is new to me today: No Emergency Visit: No Critical Care patient: No - Discharge Referral Referred to [facility] Med P.C.: No
[2016-11-17] MEDS ORDERED: predniSONE 20 MG TABLET (UD) PO SCH (10:00)
[2016-11-17] MEDS ORDERED: LISINOPRIL 20 MG TABLET (FP) PO SCH (10:00)
[2016-11-17] MEDS ORDERED: ASPIRIN 81 MG CHEWABLE TABLETS PO SCH (10:00)
[2016-11-17] MEDS ORDERED: HYDROCHLOROTHIAZIDE 12.5 MG CAPSULE (FP) PO SCH (10:00)
--- NOTE | 2016-11-20 14:10 | PATH ---
Surgical Pathology Report Patient Name: VIANEY WARNER JR Med. Rec. #: [id number] /Age/Gender: 1940 (Age: 76) / M Account: [id number] Location: [facility]/SURG Taken: 11/17/2016 Received: 11/17/2016 Reported: 11/20/2016 Physicians: Vin Rios Specimen(s) Received TEMPORAL ARTERY BIOPSY Clinical History Temporal headache Final Diagnosis LEFT TEMPORAL ARTERY, BIOPSY: MUSCULAR ARTERY WITH NO PATHOLOGIC CHANGES. NO ARTERITIS IDENTIFIED. Electronically Signed Nico Woodward M.D. Gross Description Received in formalin labeled "left temporal artery," is a 1.0 cm in length x 0.1 cm in diameter portion of vasculature, consistent with a temporal artery biopsy. The specimen is serially sectioned and entirely submitted in one cassette. 11/17/201611/17/2016
== END 2016-11-16 18:05 | disposition home or self-care (01) | DRG 516 ==
LOC: JER 18:35 → JERBED 20:46 → J8W 22:54
PROVIDERS: ADMIT Internal Medicine; ATTEND Internal Medicine
PROC: 03BT0ZX Excision of Left Temporal Artery, Open Approach, Diagnostic (ICD-10-PCS; principal; 2016-11-16 15:30)
DX: M31.6 Other giant cell arteritis (principal); N17.9 Acute kidney failure, unspecified; N18.4 Chronic kidney disease, stage 4 (severe); G44.85 Primary stabbing headache; E78.5 Hyperlipidemia, unspecified; I12.9 Hypertensive chronic kidney disease with stage 1 through stage 4 chronic kidney disease, or unspecified chronic kidney disease; Z85.46 Personal history of malignant neoplasm of prostate; Z87.891 Personal history of nicotine dependence
CPT/HCPCS: 36415; 71010-TC; 80048; 80061; 82570; 83721; 84156; 85025; 85610; 85730; 88305-TC; 99281-25

== ENCOUNTER 2019-06-14 13:23 | Inpatient (IN) | payer OTHER ==
--- NOTE | 2019-06-14 13:52 | PDOC ---
History of Present Illness - General Chief Complaint: Vomiting/Diarrhea Stated Complaint: VOMITING/DIARRHEA Time Seen by Provider: 06/14/19 13:50 Past History - Past Medical History Allergies/Adverse Reactions: Allergies Allergy/AdvReac Type Severity Reaction Status Date / Time No Known Allergies Allergy Verified 06/14/19 13:46 Home Medications: Ambulatory Orders Aspirin [ASA -] 81 mg PO DAILY 11/14/16 Atorvastatin Ca [Lipitor] 20 mg PO HS 06/14/19 Esomeprazole Magnesium 40 mg PO ONCE 06/14/19 Docusate Sodium [Colace -] 100 mg PO DAILY #7 capsule 06/17/19 Famotidine [Pepcid] 20 mg PO BID #60 tablet 06/17/19 Cancer: Yes (Prostate cancer) HTN: Yes - Psycho Social/Smoking Cessation Hx Smoking History: Never smoked Have you smoked in the past 12 months: No If you are a former smoker, when did you quit?: 20 yrs Information on smoking cessation initiated: No Hx Alcohol Use: No Drug/Substance Use Hx: No Substance Use Type: None *Physical Exam - Vital Signs Last Vital Signs Temp Pulse Resp BP Pulse Ox 97.2 F L 111 H 17 90/60 99 06/14/19 13:33 06/14/19 13:33 06/14/19 13:33 06/14/19 13:33 06/14/19 13:33 06/14/19 15:[address] Solomon Marques ([place]) 79 y/o male PMH HTN, HLD, prostate ca s/p TURP and rad, hypospasias s/p incomplete reconstruction with non-revised urethral ventral orifices x3 c/o diarrhea and vomiting for 5 days. This has never happened before. He gets the flu shot annually on his birthday. Pt reports sudden voluminous emesis and concurrent diarrhea. This started on 10 Jun 2019. His has been ill and he has been frequenting various hospitals and clinics; poss sick contacts. He denies recent illness and has not traveled. The emesis is NBNB, brown, and occurs 6 x /day. The diarrhea is loose, non- bloody, mostly water containing, and x7/day. There is associated suprapubic pain but NO dyuria nor hematuria. Denies fever, chills, and constipation. No new food/meds/herbs, drugs/supplements Pt had endoscopy performed at [facility] for report of black stools 1 week prior to symptom onset on 02 Jun 2019. Pt received call that results were NEG. Colonoscopy was not performed as there was no available appointment. Pt reports unrecorded weight loss; his wedding band and clothes are loose. He denies night sweats and fevers. He c/o LEFT rib pain. He denies cough, sob, cp. Fam hx: sister with multiple aneurisms , mother HTN and stroke, father nicotine dependence Surg hx: TURP (2014), LEFT rotator cuff repair (2005), hypospadias repair (1954) Social hx: Current non-smoker, prior 1ppd for 20 years. Wine every night with dinner. H/o marijuana use and no other recreational drugs. Lives at home in [place] with , no pets. 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 REVIEW OF SYSTEMS CONSTITUTIONAL: Absent: fever, chills, diaphoresis, generalized weakness, malaise, loss of appetite, weight change HEENT: Absent: rhinorrhea, nasal congestion, throat pain, throat swelling, difficulty swallowing, mouth swelling, ear pain, eye pain, visual changes CARDIOVASCULAR: Absent: chest pain, syncope, palpitations, irregular heart rate, lightheadedness, peripheral edema RESPIRATORY: Absent: cough, shortness of breath, dyspnea with exertion, orthopnea, wheezing, stridor, hemoptysis GASTROINTESTINAL: Absent: abdominal pain, abdominal distension, nausea, vomiting, diarrhea, constipation, melena, hematochezia GENITOURINARY: Absent: dysuria, frequency, urgency, hesitancy, hematuria, flank pain, genital pain MUSCULOSKELETAL: Absent: myalgia, arthralgia, joint swelling, back pain, neck pain SKIN: Absent: rash, itching, pallor HEMATOLOGIC/IMMUNOLOGIC: Absent: easy bleeding, easy bruising, lymphadenopathy, frequent infections ENDOCRINE: Absent: unexplained weight gain, unexplained weight loss, heat intolerance, cold intolerance NEUROLOGIC: Absent: headache, focal weakness or paresthesias, dizziness, unsteady gait, seizure, mental status changes, bladder or bowel incontinence PSYCHIATRIC: Absent: anxiety, depression, suicidal or homicidal ideation, hallucinations. GENERAL: AO x3 NAD, friendly > HEAD: NCAT, temporal wasting vs morphologic variant (adult son has similar facies) EYES: KI, EOMI, sclera anicteric, conjunctiva clear. No ptosis. > ENT: White film on tongue. Ears normal, nares patent, oropharynx clear without exudates, moist mucous membranes. NECK: Trachea midline, full range of motion, supple. > LUNGS: CTAB , posterior lung filed apical wheezes BL. No crackles, no accessory muscle use. HEART: RRR, S1, S2 without murmur, rub or gallop. ABDOMEN: Soft, nontender, nondistended, normoactive bowel sounds, no guarding, no rebound, no hepatosplenomegaly, no masses. > : Penis with 2 indentified ventral orifices that do NOT demonstrate erythema, warmth, edema, or dc EXTREMITIES: 2+ pulses, warm, well-perfused, no edema. NEUROLOGICAL: Cranial nerves II through XII grossly intact. Normal speech, gait not observed. PSYCH: Normal mood, normal affect. SKIN: Warm, dry, normal turgor, no rashes or lesions noted A/P # viral gastritis VS UTI VS malignancy - CBC, CMP, UA, U cx, EKG - NS - Acetominophen, zofran 06/14/19 16:24 CXR no acute changes CK 378, CK-MB 5.2, Trop <0.02 Waiting for Cr, will consider non-con CT a/p 06/14/19 16:44 Cr. 7.6 baseline 2 in previous visits BUN 59.2 eGFR 7.21 consistent with renal failure Plan to CT a/p NO contrast 06/14/19 18:08 Bedside ab US performed Pre-void bladder 138 cc No evidence of hydronephrosis Multiple cyctic structure on kidneys BL (curious given fam hx of sister with aneusryms ?caution for Shields Aneurysm) Case discussed with Dr. Choi - stephania and provide Mata catheter. Plan to admit for SAE with renal failure 06/14/19 18:12 Pt has not seen urologist in approximately 9 years. He used to follow with Dr. Ramsay of [facility], [place] Will consult Dr. Paiz for how to hydrate and avoid retention given morphology of penis; question: can we place Mata? 06/14/19 18:[address] Paiz. He advises NOT to place a Mata, hydrate as planned, and allow pt to produce urine. Admit to hospital and Dr. Paiz will see the pt. Will send microblog 06/14/19 18:51 ED Treatment Course - LABORATORY CBC & Chemistry Diagram: 06/17/19 06:45 06/17/19 06:30 Discharge - Discharge Information Problems reviewed: Yes Clinical Impression/Diagnosis: SAE (acute kidney injury) Condition: Good Disposition: HOME - Admission Yes - Follow up/Referral - Patient Discharge Instructions - Post Discharge Activity
[2019-06-14] MEDS ORDERED: SODIUM CHLORIDE 0.9% 1000 ML INFUS.BAG IV ONE (14:22)
[2019-06-14] MEDS ORDERED: ACETAMINOPHEN 1000 MG/100 ML VIAL (NON FORMULARY) IVPB ONE (14:22)
[2019-06-14] MEDS ORDERED: ONDANSETRON 4 MG/2 ML VIAL IVPUSH ONE (14:25)
[2019-06-14] MEDS ORDERED: ACETAMINOPHEN INJECTION 100 ML IVPB ONE (14:32)
[2019-06-14 15:33] LABS: BASO % 0.3 % (0-2.0); EOS % 0.4 % (0-4.5); HEMATOCRIT 37.1 % (35.4-49); HEMOGLOBIN 12.6 GM/dL (11.7-16.9); LYMPH % 10.3 % (8-40); MCH 30.3 pg (25.7-33.7); MCHC 33.9 g/dl (32.0-35.9); MEAN CELL VOLUME 89.4 fl (80-96); MONO % 12.3 % (3.8-10.2); NEUT % 76.7 % (42.8-82.8); PLATELET COUNT 259 K/MM3 (134-434); RBC 4.15 M/mm3 (4.00-5.60); WHITE BLOOD COUNT 7.5 K/mm3 (4.0-10.0)
[2019-06-14 15:59] LABS: ALBUMIN 4.2 g/dl (3.4-5.0); BILIRUBIN,TOTAL 0.3 mg/dL (0.2-1); BLOOD UREA NITROGEN 59.2 mg/dL (7-18); CALCIUM 9.8 mg/dL (8.5-10.1); POTASSIUM 3.5 mmol/L (3.5-5.1); TOT PROT 8.7 g/dl (6.4-8.2)
[2019-06-14 16:33] LABS: CREATININE 7.6 mg/dL (0.55-1.3)
[2019-06-14] MEDS ORDERED: SODIUM CHLORIDE 1,000 ML IV STA (16:45)
--- NOTE | 2019-06-14 16:48 | PDOC ---
Documentation entered by Ravi Frank SCRIBE, acting as scribe for Jono Coronado MD. Jono Coronado MD: This documentation has been prepared by the Zac yi Daniel, SCRIBE, under my direction and personally reviewed by me in its entirety. I confirm that the documentation accurately reflects all work, treatment, procedures, and medical decision making performed by me. Attending Attestation - Resident Resident Name: Duncan Chapa - TAYLOR Attending Attestation I have performed the following: I have examined & evaluated the patient, The case was reviewed & discussed with the resident, I agree w/resident's findings & plan, Exceptions are as noted - HPI HPI: 06/14/19 14:35 The patient is a 79 year old male with a past medical history of prostate cancer and HTN here today for evaluation of vomiting and diarrhea. The patient reports that he has had 5 days of non bloody non bilious vomiting and diarrhea and notes multiple episodes per day. He also notes decreased PO intake, appetite, and lower abdominal pain which he describes as crampy and intermittent. Patient denies headache, lightheadedness. Denies fever, chills. Denies chest pain, shortness of breath. Allergies: NKA PCP: Solomon Marques - Physicial Exam PE: 06/19/19 08:10 Vitals: Triage Vital signs reviewed General Appearance: No acute distress, well nourished well developed, Head: Atraumatic, Cardiac: Regular rate and rhythym, no murmurs, no rubs, no gallops, Lungs: Clear to auscultation bilateral, good air movement bilaterally, Abdomen: Soft, non distended, normal bowel sounds, mild lower abdominal discomfort no rebound no guarding Extremities: Full range of motion to all extremities, no cyanosis, clubbing, or edema Skin: Warm and dry, no rashes or lesions, no rash, no petechiae Psych: Normal mood, normal affect - Medical Decision Making 06/14/19 16:48 5-day history of nausea vomiting diarrhea difficulty tolerating fluids now with renal failure We will admit to medicine for hydration hydration and renal consultation
--- NOTE | 2019-06-14 19:23 | PN ---
Teaching Attending Note Name of Resident: Ashlie Raymond ATTENDING PHYSICIAN STATEMENT I saw and evaluated the patient. I reviewed the resident's note and discussed the case with the resident. I agree with the resident's findings and plan as documented. SUBJECTIVE: Patient is a 79 year old man with a PMH of Prostate cancer (2014) in remission ( s/p TURP and radiation therapy), Hypospadias (s/p incomplete reconstruction with non-revised urethral ventral orifices x3), HLD and HTN here today for evaluation of vomiting and diarrhea. The patient reports that he has had 5 days of non bloody non bilious vomiting and diarrhea and notes multiple episodes per day. He also notes decreased PO intake, poor appetite, and lower abdominal pain which he describes as crampy and intermittent. Has had decreased urination in the past two days. Patient denies headache, lightheadedness, fever, chills, chest pain, shortness of breath, hematuria or dysuria. His has been ill and he has been frequenting various hospitals and clinics. Denies consumption of unusual or street foods and no new medications or alternative medical products. He had endoscopy performed at [facility] for reported black stools on 02 Jun 2019 and it was negative. He reports unintended weight loss, but denies night sweats or productive cough but has left rib pain. Has FH of HTN and CVA and his sister had multiple brain aneurysms. Ex-smoker. Denies alcohol, tobacco or illicit drug use. No recent travels. OBJECTIVE: Alert Vital Signs Period Temp Pulse Resp BP Sys/Yusuf Pulse Ox Last 24 Hr 97.2 F-98.1 F 80-111 16-17 90-102/60-67 99-100 HEENT: No Jaundice, eye redness or discharge, PERRLA, EOMI. Normocephalic, atraumatic. External ears are normal and hearing is grossly intact. No nasal discharge. Neck: Supple, nontender. No palpable adenopathy or thyromegaly. No JVD Chest: Good effort. Clear to auscultation and percussion. Heart: Regular. No S3, rub or murmur Abdomen: Not distended, soft, nontender and no HSM. No rebound or guarding. Normal bowel sounds. Ext: Peripheral pulses intact. No leg edema. Skin: Warm and dry. No petechiae, rash or ecchymosis. Neuro: Alert. Oriented x3. CN 2-12 grossly intact. Sensation grossly intact in all four extremities and DTR are symmetric. Psych: Appropriate mood and affect. Good insight. Home Medications Medication Instructions Recorded Aspirin [ASA -] 81 mg PO DAILY 11/14/16 Lisinopril/Hydrochlorothiazide 1 each PO DAILY 11/14/16 [Lisinopril-Hctz 20-12.5 mg Tab] Atorvastatin Ca [Lipitor] 20 mg PO HS 06/14/19 Esomeprazole Magnesium 40 mg PO ONCE 06/14/19 Abnormal Lab Results 06/14/19 06/14/19 14:30 14:30 Monocytes % 12.3 H D BUN 59.2 H Creatinine 7.6 H* Creatine Kinase 378 H CK-MB (CK-2) 5.2 H Total Protein 8.7 H ASSESSMENT AND PLAN: 1. SAE/Gastroenteritis - Patient has underlying CKD of unknown cause, now with superimposed SAE due to dehydration and HCTZ therapy. Etiology of diarrhea and vomiting is unclear - will get CT abdomen/pelvis, send stool for C. diff, ova and parasites and leukocytes. Will continue IV NS and monitor urine output. Bedside sonogram in the ER didnot show hydronephrosis. ER staff consulted Nephrology and Urology. Urology advised against a munoz catheter placement in view of the morphology of the penis. CXR shows hyperinflation and trachea deviation to the right at the thoracic inlet suggesting thyromegaly. Will get PSA, reconsult Urology for prostate cancer in view of recent weight loss, get thyroid sonogram, TFTs and consult Endocrine. Will get urinalysis, phosphate and PTH levels, avoid nephrotoxic agents such as NSAIDS, aminoglycosides, contrast dyes and certain Alternative medicine products. Will continue comprehensive care for all of patients comorbid conditions. 2. Hypertension - Hold all antihypertensive drugs for now. Restart suitable outpatient antihypertensive drugs when clinically appropriate. Revise regimen to ensure [id number] excellent BP control and family and marriage counsellor patient on the injurious effects of uncontrolled hypertension. Nonpharmacologic measures to control hypertension like weight loss, salt restriction and exercise discussed. Importance of adherence to treatment regimen and attainment of normotension emphasized. 3. DVT prophylaxis - Heparin 5000u sq tid. 4. Advance directives - Full code
--- NOTE | 2019-06-14 21:09 | HP ---
CHIEF COMPLAINT: n/v/d PCP: Dr. Ramsay- urologist HISTORY OF PRESENT ILLNESS: 79 y/o M, pmh of HLD, HTN, prostate cancer s/p TURP + radiation, hypospadias s/p incomplete reconstruction due to lack of f/u w/ non-revised 3 urethral ventral orifices presented to the ED c/o of nausea, nbnb vomit x10/day and nb diarrhea x10/day of 5 day duration that has worsened since onset, accompanied by decreased PO intake, dehydration, lethargy and weight loss. He also reports one episode of bloody diarrhea several weeks ago which was worked up with EGD that was neg on bx at [facility]. Colonoscopy was also planned but was not completed due to difficulty arranging an appt. Pt reports that he has been going in and out of the hospitals for months since his has been sick. He admits to stress and tension during this period. He has had his flu vaccine. He has had sick contact but no recent travels. There is associated suprapubic pain but NO dyuria nor hematuria. Pt reports unrecorded weight loss; his wedding band and clothes are loose Denies f/c/sob/cp/abd pain/melena, hematochezia. ER course was notable for: (1) IVF given (2) Cre 7.6 (3)CXR: enlarged thyroid, tracheal deviation to the right Recent Travel: denies PAST MEDICAL HISTORY: HLD, HTN, prostate cancer s/p TURP + radiation, hypospadias s/p incomplete reconstruction due to lack of f/u w/ non-revised 3 urethral ventral orifices Fam hx: sister with multiple aneurisms , mother HTN and stroke, father nicotine dependence PAST SURGICAL HISTORY: TURP (2014), LEFT rotator cuff repair (2005), hypospadias repair (1955) Social History: Smoking: Current non-smoker, prior 1ppd for 20 years. H/o marijuana use and no other recreational drugs Alcohol: Wine every night with dinner. Drugs: Allergies No Known Allergies Allergy (Verified 06/14/19 13:46) HOME MEDICATIONS: Home Medications Medication Instructions Recorded Aspirin [ASA -] 81 mg PO DAILY 11/14/16 Lisinopril/Hydrochlorothiazide 1 each PO DAILY 11/14/16 [Lisinopril-Hctz 20-12.5 mg Tab] Atorvastatin Ca [Lipitor] 20 mg PO HS 06/14/19 Esomeprazole Magnesium 40 mg PO ONCE 06/14/19 REVIEW OF SYSTEMS CONSTITUTIONAL: ADMITS: generalized weakness, malaise, loss of appetite, weight change Absent: fever, chills, diaphoresis, HEENT: Absent: rhinorrhea, nasal congestion, throat pain, throat swelling CARDIOVASCULAR: Absent: chest pain, syncope, palpitations, irregular heart rate, RESPIRATORY: Absent: cough, shortness of breath, dyspnea with exertion, orthopnea, GASTROINTESTINAL: Admits: nausea, vomiting, diarrhea, Absent: abdominal pain, abdominal distension, constipation, melena, hematochezia GENITOURINARY: Absent: dysuria, frequency, urgency, hematuria, flank pain, MUSCULOSKELETAL: Absent: back pain, neck pain PHYSICAL EXAMINATION Vital Signs - 24 hr 06/14/19 06/14/19 06/14/19 13:33 17:05 17:14 Temperature 97.2 F L 98.1 F Pulse Rate 111 H Pulse Rate [ 94 H 80 Right Radial] Respiratory 17 16 Rate Blood Pressure 90/60 Blood Pressure 97/67 102/65 [Right Arm] O2 Sat by Pulse 99 100 99 Oximetry (%) GENERAL: Awake, alert, and fully oriented, in no acute distress. EYES: PERRLA, EOMI, EARS, NOSE, THROAT: oropharynx clear without exudates. Dry mucous membranes. NECK: supple LUNGS: Breath sounds equal, clear to auscultation bilaterally. No wheezes, and no crackles. HEART: Regular rate and rhythm, normal S1 and S2 without murmur, rub or gallop. ABDOMEN: Soft, nontender, not distended, hyperactive bowel sounds, no guarding, no rebound, no masses. Mild Suprapubic tenderness MUSCULOSKELETAL: No CVA tenderness. UPPER EXTREMITIES: 2+ pulses, well-perfused. No peripheral edema. Dry LOWER EXTREMITIES: 2+ pulses, well-perfused. No peripheral edema. Dry NEUROLOGICAL: Normal speech. Normal gait. SKIN: Warm, dry, decreased turgor Laboratory Results - last 24 hr 06/14/19 06/14/19 06/14/19 14:30 14:30 14:30 WBC 7.5 RBC 4.15 Hgb 12.6 Hct 37.1 MCV 89.4 MCH 30.3 MCHC 33.9 RDW 15.0 Plt Count 259 MPV 9.0 Absolute Neuts (auto) 5.8 Neutrophils % 76.7 Lymphocytes % 10.3 D Monocytes % 12.3 H D Eosinophils % 0.4 D Basophils % 0.3 Nucleated RBC % 0 Sodium 138 Potassium 3.5 Chloride 103 Carbon Dioxide 24 Anion Gap 12 BUN 59.2 H Creatinine 7.6 H* Est GFR (CKD-EPI)AfAm 7.21 Est GFR (CKD-EPI)NonAf 6.22 Random Glucose 104 Calcium 9.8 Total Bilirubin 0.3 AST 32 ALT 26 Alkaline Phosphatase 88 Creatine Kinase 378 H Creatine Kinase Index 1.3 Cancelled CK-MB (CK-2) 5.2 H Cancelled Troponin I 0.02 Total Protein 8.7 H Albumin 4.2 ASSESSMENT/PLAN: 79 y/o M, pmh of HLD, HTN, prostate cancer s/p TURP + radiation, hypospadias presented to the ED c/o of nausea, nbnb vomit x10/day and nb diarrhea x10/day of 5 day duration is admitted for viral gastroenteritis #Gastroenteritis 2/2 to viral due to lack of leukocytosis, afebrile, no findings on CAT scan exposure to sick contacts and contagious environment/hospitals CT a/p: no signs of infxn, diveritculosis w/ no diverticulitis on [place] read, multiple renal cyst seen hydrate pt to replete fluids and electrolytes C-diff ag sent Stool Cx for possible organisms causing infxn Zofran for nausea if needed #SAE likely 2/2 to prenal hypoperfusion 2/2 to dehydration/volume depletion due to continuous vomiting/diarrhea pt reports 10 episodes/day BUN/Cre: 7.6/59.2 Cre clearance calculated- 7% Cont IVF at 100 to hydrate if pt continues to retain, r/p Bladder scan and if >200cc reduce fluids >400 cc will likely need munoz; however as per Dr. Paiz/Urology- NO Munoz for now until he sees pt Dr. Paiz/urology consulted Will consider Nephro if no improvement Bladder scan ordered Urine Na, Osm, Cre ordered #Hypotension 2/2 to volume depletion 2/2 to large voluminous loss of fluids in vomit&diarrhea after aggressive hydration, BP at 108/80 Hold Hypertensive meds- norvasc 5, lisinopril/HCTZ- 20/17.5 #Hypokalemia 2/2 to emesis from volume depletion/metabolic alkalosis leading to increased renal potassium excretion, as well as nathen effect KCl 20meq repleted r/p BMP for 12 am-f/u #Elevated Cardiac markers/ ck-mb likely 2/2 to SAE 2/2 damage to myocardial cells from uremia Will monitor for now #HLD hold lipitor 20 HS due elevated CK levels #Anuria cont to monitor encourage pt to urinate PVR w/ bladder scan if no urine #Multiple cysts on b/l kidneys on CT a/p Consider PKD in the setting of family hx of brain aneurysms DVT ppx heparin sq FEN NPO for now cont fluids monitor lytes Dispo: cont IVF fluids, f/u bladder scan, encourage urination Visit type - Emergency Visit Emergency Visit: Yes ED Registration Date: 06/14/19 Care time: The patient presented to the Emergency Department on the above date and was hospitalized for further evaluation of their emergent condition. - New Patient This patient is new to me today: Yes Date on this admission: 06/17/19 - Critical Care Critical Care patient: No ATTENDING PHYSICIAN STATEMENT I saw and evaluated the patient. I reviewed the resident's note and discussed the case with the resident. I agree with the resident's findings and plan as documented. SUBJECTIVE: OBJECTIVE: ASSESSMENT AND PLAN:
[2019-06-14] MEDS: SODIUM CHLORIDE 1,000 ML IV SCH (22:44)
[2019-06-14] MEDS: KCL 10 MEQ IVPB 10 MEQ/100 ML INFUS.BAG IVPB SCH (22:45)
[2019-06-14] MEDS: HEPARIN NA (PORCINE) 5,000 UNITS/ML 1ML VIAL SQ SCH (22:47)
[2019-06-15] MEDS: KCL 10 MEQ IVPB 10 MEQ/100 ML INFUS.BAG IVPB SCH (00:19)
[2019-06-15 01:44] LABS: CALCIUM 8.8 mg/dL (8.5-10.1); POTASSIUM 3.6 mmol/L (3.5-5.1)
[2019-06-15 01:59] LABS: URINE APPEARANCE CLEAR; URINE BILIRUBIN NEGATIVE (NEGATIVE); URINE COLOR YELLOW; URINE GLUCOSE (UA) NEGATIVE (NEGATIVE); URINE KETONE NEGATIVE (NEGATIVE); URINE LEUK ESTERASE NEGATIVE (NEGATIVE); URINE NITRITE NEGATIVE (NEGATIVE); URINE PROTEIN TRACE (NEGATIVE); URINE UROBILINOGEN 0.2 mg/dL (0.2-1.0)
[2019-06-15] MEDS: ACETAMINOPHEN 325 MG TABLET (FP) PO PRN ×2 (02:00→14:03)
[2019-06-15] MEDS: HEPARIN NA (PORCINE) 5,000 UNITS/ML 1ML VIAL SQ SCH ×4 (05:40→21:09)
[2019-06-15 08:06] LABS: BASO % 0.2 % (0-2.0); EOS % 2.3 % (0-4.5); HEMATOCRIT 30.2 % (35.4-49); HEMOGLOBIN 10.2 GM/dL (11.7-16.9); LYMPH % 20.9 % (8-40); MCH 30.1 pg (25.7-33.7); MCHC 33.8 g/dl (32.0-35.9); MEAN PLT VOLUME 8.7 fl (7.5-11.1); MONO % 15.7 % (3.8-10.2); NEUT % 60.9 % (42.8-82.8); PLATELET COUNT 181 K/MM3 (134-434); RBC 3.39 M/mm3 (4.00-5.60); RDW 14.8 % (11.9-15.9); WHITE BLOOD COUNT 4.3 K/mm3 (4.0-10.0)
[2019-06-15 08:30] LABS: ALBUMIN 3.1 g/dl (3.4-5.0); BILIRUBIN,TOTAL 0.4 mg/dL (0.2-1); CALCIUM 8.4 mg/dL (8.5-10.1); CREATININE 5.3 mg/dL (0.55-1.3); MAGNESIUM 1.8 mg/dL (1.8-2.4); PHOSPHOROUS 3.2 mg/dL (2.5-4.9); POTASSIUM 3.5 mmol/L (3.5-5.1); TOT PROT 6.2 g/dl (6.4-8.2)
--- NOTE | 2019-06-15 11:14 | CON.GU ---
Consult Consult Specialty:: Referred by:: Gaurav Reason for Consultation:: urinary retention - History of Present Illness Chief Complaint: N,V History of Present Illness: 79 y/o M, pmh of HLD, HTN, prostate cancer s/p TURP + radiation, hypospadias s/ p incomplete reconstruction due to lack of f/u w/ non-revised 3 urethral ventral orifices presented to the ED c/o of nausea, nbnb vomit x10/day and nb diarrhea x10/day of 5 day duration that has worsened since onset, accompanied by decreased PO intake, dehydration, lethargy and weight loss. He also reports one episode of bloody diarrhea several weeks ago which was worked up with EGD that was neg on bx at [facility]. Colonoscopy was also planned but was not completed due to difficulty arranging an appt. Pt reports that he has been going in and out of the hospitals for months since his has been sick. He admits to stress and tension during this period. He has had his flu vaccine. He has had sick contact but no recent travels. There is associated suprapubic pain but NO dyuria nor hematuria. Pt reports unrecorded weight loss; his wedding band and clothes are loose Denies f/c/sob/cp/abd pain/melena, hematochezia. cons req. ER course was notable for: (1) IVF given (2) Cre 7.6 (3)CXR: enlarged thyroid, tracheal deviation to the right Recent Travel: denies PAST MEDICAL HISTORY: HLD, HTN, prostate cancer s/p TURP + radiation, hypospadias s/p incomplete reconstruction due to lack of f/u w/ non-revised 3 urethral ventral orifices Fam hx: sister with multiple aneurisms , mother HTN and stroke, father nicotine dependence PAST SURGICAL HISTORY: TURP (2014), LEFT rotator cuff repair (2005), hypospadias repair (1955) Social History: Smoking: Current non-smoker, prior 1ppd for 20 years. H/o marijuana use and no other recreational drugs Alcohol: Wine every night with dinner. Drugs: Allergies No Known Allergies Allergy (Verified 06/14/19 13:46) - History Source History Provided By: Patient, Medical Record Limitations to Obtaining History: No Limitations - Past Medical History Renal/: Yes: Other - Past Surgical History Past Surgical History: Yes: Prostatectomy - Alcohol/Substance Use Hx Alcohol Use: No - Smoking History Smoking history: Never smoked Have you smoked in the past 12 months: No If you are a former smoker, when did you quit?: 20 yrs Home Medications - Allergies Allergies/Adverse Reactions: Allergies Allergy/AdvReac Type Severity Reaction Status Date / Time No Known Allergies Allergy Verified 06/14/19 13:46 - Home Medications Home Medications: Ambulatory Orders Aspirin [ASA -] 81 mg PO DAILY 11/14/16 Lisinopril/Hydrochlorothiazide [Lisinopril-Hctz 20-12.5 mg Tab] 1 each PO DAILY 11/14/16 Atorvastatin Ca [Lipitor] 20 mg PO HS 06/14/19 Esomeprazole Magnesium 40 mg PO ONCE 06/14/19 Review of Systems - Review of Systems Gastrointestinal: reports: Abdominal Pain (SP) Genitourinary: denies: Dysuria Physical Exam- Vital Signs: Vital Signs Temperature 97.8 F 06/15/19 06:14 Pulse Rate 72 06/15/19 06:14 Respiratory Rate 20 06/15/19 06:14 Blood Pressure 104/72 06/15/19 06:14 O2 Sat by Pulse Oximetry (%) 98 06/14/19 21:00 Constitutional: Yes: Well Nourished, No Distress, Calm Eyes: Yes: WNL HENT: Yes: WNL Neck: Yes: WNL Cardiovascular: Yes: WNL Respiratory: Yes: WNL Gastrointestinal: Yes: WNL, Normal Bowel Sounds, Soft Renal/: Yes: WNL. No: Bladder Distention Kidneys: Yes: WNL Pelvis: Yes: WNL Testicles: Yes: WNL Scrotum: Yes: WNL Penis: Yes: Hypospadias (3 ventral urethral orifices) Labs: CBC, BMP 06/15/19 07:16 06/15/19 07:16 Imaging - Results Cat Scan: Report Reviewed, Image Reviewed Problem List - Problems (1) SAE (acute kidney injury) Assessment/Plan: I offered pt munoz but he declined and he is voiding adequately Code(s): N17.9 - ACUTE KIDNEY FAILURE, UNSPECIFIED (2) Prostate CA Code(s): C61 - MALIGNANT NEOPLASM OF PROSTATE
--- NOTE | 2019-06-15 12:09 | CONSULT ---
Consult - text type - Consultation Consultation Note: Renal consult for SAE This is a 79 year old gentleman with history of hypertension, prostate cancer s/p TURP who presented with 1 week history of N/V/D and found to have SAE with serum Cr of 7.6. Pt denies any history of CKD, kidney stones or recurrent urinary tract infections. Pt reports being able to void w/o difficultly but reports making very little urine yesterday. Denies any MCKINLEY, confusion, CP, SOB, cough, fever, chills, abd pain. No N/V/D since coming to the hospital. No NSAID use or contrast exposure. No flank pain. PMhx: as above Allergies: NKDA Family Hx: NC Social Hx: No T/A/D ROS: As per HPI, all other pertinent ros negative Home Medications Medication Instructions Recorded Aspirin [ASA -] 81 mg PO DAILY 11/14/16 Lisinopril/Hydrochlorothiazide 1 each PO DAILY 11/14/16 [Lisinopril-Hctz 20-12.5 mg Tab] Atorvastatin Ca [Lipitor] 20 mg PO HS 06/14/19 Esomeprazole Magnesium 40 mg PO ONCE 06/14/19 Vital Signs Temperature 97.8 F 06/15/19 06:14 Pulse Rate 72 06/15/19 06:14 Respiratory Rate 20 06/15/19 06:14 Blood Pressure 104/72 06/15/19 06:14 O2 Sat by Pulse Oximetry (%) 98 06/14/19 21:00 Intake & Output 06/12/19 06/13/19 06/14/19 06/15/19 23:59 23:59 23:59 23:59 Intake Total 500 900 Balance 500 900 Weight 59.647 kg 61.263 kg NAD awake and alert neck supple, no JVD RRR, no M/R CTA, no rales or wheeze soft NT/ND slight bladder distension no LE edema, clubbing or cyanoiss no focal neurologic deficits CBC, BMP 06/15/19 07:16 06/15/19 07:16 Laboratory Tests 06/15/19 06/15/19 06/15/19 01:20 01:20 01:20 Calcium Phosphorus Magnesium Albumin Urine pH 5.0 Ur Random Creatinine 364.0 H Ur Random Sodium 33 L 06/15/19 07:16 Calcium 8.4 L Phosphorus 3.2 Magnesium 1.8 Albumin 3.1 L Urine pH Ur Random Creatinine Ur Random Sodium Current Medications Acetaminophen (Tylenol -) 650 mg PO Q6H PRN PRN Reason: Fever Or Pain Last Admin: 06/15/19 02:00 Dose: 650 mg Heparin Sodium (Porcine) (Heparin -) 5,000 unit SQ TID [facility] Last Admin: 06/15/19 05:46 Dose: Not Given Sodium Chloride (Normal Saline -) 1,000 mls @ 100 mls/hr IV ASDIR [facility] Last Admin: 06/14/19 22:44 Dose: 100 mls/hr 79 year old gentleman with history of hypertension, prostate cancer s/p TURP who presented with 1 week history of N/V/D and found to have SAE with serum Cr of 7.6. 1. SAE secondary to volume depletion +/- hemodynamic injury in setting of N/V/D + [place]/diuretic 2. Hx of prostate cancer 3. Gastroenteritis Renal function improving with isotonic saline would continue saline at the present rate FeNa was 0.3% indicating preserved tubular function UA w/o protein or sediment Bladder scan w/o evidence of retention continue supportive care hold ACEi and diuretic for now can anticipate discharge in 24 hours if no futher N/V, tolerating diet and renal function improving Thank you Angus Choi DO
--- NOTE | 2019-06-15 12:09 | EKG ---
Test Reason : Blood Pressure : / mmHG Vent. Rate : 097 BPM Atrial Rate : 097 BPM P-R Int : 124 ms QRS Dur : 088 ms QT Int : 336 ms P-R-T Axes : 079 055 080 degrees QTc Int : 426 ms NORMAL SINUS RHYTHM BIATRIAL ENLARGEMENT INCOMPLETE RIGHT BUNDLE BRANCH BLOCK LEFT VENTRICULAR HYPERTROPHY ABNORMAL ECG WHEN COMPARED WITH ECG OF 26-JAN-2009 09:50, NO SIGNIFICANT CHANGE WAS FOUND Confirmed by LINDSEY SHI MD ([id number]) on 06/15/2019 12:09:12 PM Referred By: Confirmed By:LINDSEY SHI MD
[2019-06-15] MEDS ORDERED: IBUPROFEN 400 MG TABLET (FP) PO ONE (14:17)
--- NOTE | 2019-06-15 16:07 | PN ---
Progress Note (short form) - Note Progress Note: SUBJECTIVE: Feeling much better, abdominal pain/nausea/vomiting/diarrhea resolved. LBM yesterday AM. Wants to eat. OBJECTIVE: Afebrile, Hemodynamically Stable. Last Vital Signs Temp Pulse Resp BP Pulse Ox 98.7 F 82 20 117/68 99 06/15/19 14:08 06/15/19 14:08 06/15/19 14:08 06/15/19 14:08 06/15/19 09:00 HEENT - Atraumatic, Normocephalic. Heart - S1, S2, RRR Lungs - clear to auscultation Abdomen - Soft, non-tender. Bowel Sounds normal. Extremities - no edema, no calf tenderness. Laboratory Results - last 24 hr 06/14/19 06/14/19 06/15/19 14:30 14:30 00:30 WBC RBC Hgb Hct MCV MCH MCHC RDW Plt Count MPV Absolute Neuts (auto) Neutrophils % Lymphocytes % Monocytes % Eosinophils % Basophils % Nucleated RBC % Sodium 138 142 Potassium 3.5 3.6 Chloride 103 108 H Carbon Dioxide 24 23 Anion Gap 12 11 BUN 59.2 H 60.0 H Creatinine 7.6 H* 6.0 H Est GFR (CKD-EPI)AfAm 7.21 9.60 Est GFR (CKD-EPI)NonAf 6.22 8.28 Random Glucose 104 79 Calcium 9.8 8.8 Phosphorus Magnesium Total Bilirubin 0.3 AST 32 ALT 26 Alkaline Phosphatase 88 Creatine Kinase 378 H Creatine Kinase Index 1.3 Cancelled CK-MB (CK-2) 5.2 H Cancelled Troponin I 0.02 Total Protein 8.7 H Albumin 4.2 TSH 1.22 Urine Color Urine Appearance Urine pH Ur Specific [place] Urine Protein Urine Glucose (UA) Urine Ketones Urine Blood Urine Nitrite Urine Bilirubin Urine Urobilinogen Ur Leukocyte Esterase Urine Osmolality Ur Random Creatinine Ur Random Sodium 06/15/19 06/15/19 06/15/19 01:20 01:20 01:20 WBC RBC Hgb Hct MCV MCH MCHC RDW Plt Count MPV Absolute Neuts (auto) Neutrophils % Lymphocytes % Monocytes % Eosinophils % Basophils % Nucleated RBC % Sodium Potassium Chloride Carbon Dioxide Anion Gap BUN Creatinine Est GFR (CKD-EPI)AfAm Est GFR (CKD-EPI)NonAf Random Glucose Calcium Phosphorus Magnesium Total Bilirubin AST ALT Alkaline Phosphatase Creatine Kinase Creatine Kinase Index CK-MB (CK-2) Troponin I Total Protein Albumin TSH Urine Color Yellow Urine Appearance Clear Urine pH 5.0 Ur Specific [place] 1.017 Urine Protein Trace Urine Glucose (UA) Negative Urine Ketones Negative Urine Blood Negative Urine Nitrite Negative Urine Bilirubin Negative Urine Urobilinogen 0.2 Ur Leukocyte Esterase Negative Urine Osmolality 369 Ur Random Creatinine 364.0 H Ur Random Sodium 06/15/19 06/15/19 06/15/19 01:20 07:16 07:16 WBC 4.3 RBC 3.39 L Hgb 10.2 L Hct 30.2 L D MCV 89.0 MCH 30.1 MCHC 33.8 RDW 14.8 Plt Count 181 D MPV 8.7 Absolute Neuts (auto) 2.6 Neutrophils % 60.9 D Lymphocytes % 20.9 D Monocytes % 15.7 H Eosinophils % 2.3 D Basophils % 0.2 Nucleated RBC % 0 Sodium 141 Potassium 3.5 Chloride 111 H Carbon Dioxide 21 Anion Gap 9 BUN 54.0 H Creatinine 5.3 H Est GFR (CKD-EPI)AfAm 11.15 Est GFR (CKD-EPI)NonAf 9.62 Random Glucose 73 L Calcium 8.4 L Phosphorus 3.2 Magnesium 1.8 Total Bilirubin 0.4 AST 26 ALT 19 Alkaline Phosphatase 69 Creatine Kinase Creatine Kinase Index CK-MB (CK-2) Troponin I Total Protein 6.2 L Albumin 3.1 L TSH Urine Color Urine Appearance Urine pH Ur Specific [place] Urine Protein Urine Glucose (UA) Urine Ketones Urine Blood Urine Nitrite Urine Bilirubin Urine Urobilinogen Ur Leukocyte Esterase Urine Osmolality Ur Random Creatinine Ur Random Sodium 33 L Current Medications Generic Name Dose Route Start Last Admin Trade Name John PRN Reason Stop Dose Admin Acetaminophen 650 mg 06/15/19 01:54 06/15/19 14:03 Tylenol - PO 650 mg Q6H PRN Administration Fever Or Pain Heparin Sodium (Porcine) 5,000 unit 06/14/19 22:00 06/15/19 13:37 Heparin - SQ 5,000 unit TID NEHEMIAS Administration Sodium Chloride 1,000 mls @ 100 mls/hr 06/14/19 19:45 06/14/19 22:44 Normal Saline - IV 100 mls/hr ASDIR NEHEMIAS Administration Home Medications Medication Instructions Recorded Aspirin [ASA -] 81 mg PO DAILY 11/14/16 Lisinopril/Hydrochlorothiazide 1 each PO DAILY 11/14/16 [Lisinopril-Hctz 20-12.5 mg Tab] Atorvastatin Ca [Lipitor] 20 mg PO HS 06/14/19 Esomeprazole Magnesium 40 mg PO ONCE 06/14/19 ASSESSMENT/PLAN: 79 year old male with HTN, HLD, Prostate Ca s/p TURP/RTx, Hypospadias s/p incomplete reconstruction, presents with abdominal discomfort, nausea, vomiting , diarrhea, now resolved. No dysuria/hematuria/melena/hematochezia/fever/ chills. CT A/P - bilateral renal cysts, no hydronephrosis. CXR - trachea dev to R ?enlarged thyroid 1. Acute Viral Gastroenteritis Resolving. Afebrile, hemodynamicaly Stable. Last diarrhea episode yesterday AM. Patient hungry, wants to eat - will advance diet. If any further diarrhea, will culture. No need for Abx currently. 2. SAE sec to ATN due to renal hypoperfusion sec to intravascular volume depletion due to vomiting/diarrhea + Lisinopril/HCTZ. No obstruction on imaging. Improving with IV hydration. Lisinopril/HCTZ held. Nephrology following. 3. Bilateral Renal Cysts, Hx Hypospadias with incomplete reconstruction Seen by urology - no evidence of retention, passing urine spontaneously. Patient declined Mata. For out-patient follow up. 4. HTN - Hypotensive on presentation. Home anti-hypertensives (Norvasc, Lisinopril/HCTZ) held. 5. HLD - normally on Lipitor. DVT Px - Heparin SQ GI Px - on PPI Visit type - Emergency Visit Emergency Visit: Yes ED Registration Date: 06/14/19 Care time: The patient presented to the Emergency Department on the above date and was hospitalized for further evaluation of their emergent condition. - New Patient This patient is new to me today: Yes Date on this admission: 06/15/19 - Critical Care Critical Care patient: No - Discharge Referral Referred to [facility] Med P.C.: No
[2019-06-15] MEDS: SODIUM CHLORIDE 1,000 ML IV SCH ×2 (16:21→20:50)
[2019-06-15] MEDS: FAMOTIDINE 40 MG/5 ML ORAL SUSPENSION PO SCH ×2 (18:25→21:19)
[2019-06-15] MEDS ORDERED: PT OWN MED DRAWER 7, Y5N ONE (22:09)
[2019-06-16] MEDS: SODIUM CHLORIDE 1,000 ML IV SCH ×3 (02:39→21:17)
[2019-06-16 06:53] LABS: BLOOD UREA NITROGEN 41.2 mg/dL (7-18); CALCIUM 8.2 mg/dL (8.5-10.1); CREATININE 3.5 mg/dL (0.55-1.3); POTASSIUM 3.7 mmol/L (3.5-5.1)
[2019-06-16] MEDS ORDERED: PT OWN MED DRAWER 7, Y5N ONE (09:26)
[2019-06-16] MEDS: FAMOTIDINE 40 MG/5 ML ORAL SUSPENSION PO SCH ×2 (09:27→21:21)
[2019-06-16] MEDS: HEPARIN NA (PORCINE) 5,000 UNITS/ML 1ML VIAL SQ SCH ×2 (09:28→21:19)
[2019-06-16 11:53] VITALS: BMI 21.1
--- NOTE | 2019-06-16 13:06 | PN ---
Progress Note (short form) - Note Progress Note: Renal follow up for SAE Seen and examined at the bedside no acute complaints no N/V/D tolerating meals making urine no sob, cp, fever or chills Vital Signs Temperature 98.3 F 06/16/19 09:31 Pulse Rate 78 06/16/19 09:31 Respiratory Rate 18 06/16/19 09:31 Blood Pressure 120/64 06/16/19 09:31 O2 Sat by Pulse Oximetry (%) 99 06/15/19 21:00 Intake & Output 06/13/19 06/14/19 06/15/19 06/16/19 23:59 23:59 23:59 23:59 Intake Total 500 2100 1250 Output Total 1025 Balance 500 1075 1250 Weight 59.647 kg 61.263 kg 61.235 kg NAD awake and alert neck supple, no JVD RRR, no M/R CTA, no rales or wheeze soft NT/ND slight bladder distension no LE edema, clubbing or cyanoiss no focal neurologic deficits CBC, BMP 06/15/19 07:16 06/16/19 05:30 Current Medications Acetaminophen (Tylenol -) 650 mg PO Q6H PRN PRN Reason: Fever Or Pain Last Admin: 06/15/19 14:03 Dose: 650 mg Famotidine (Pepcid) 20 mg PO BID [facility] Last Admin: 06/16/19 09:27 Dose: 20 mg Heparin Sodium (Porcine) (Heparin -) 5,000 unit SQ BID [facility] Last Admin: 06/16/19 09:28 Dose: 5,000 unit Sodium Chloride (Normal Saline -) 1,000 mls @ 100 mls/hr IV ASDIR [facility] Last Admin: 06/16/19 02:39 Dose: 100 mls/hr 79 year old gentleman with history of hypertension, prostate cancer s/p TURP who presented with 1 week history of N/V/D and found to have SAE with serum Cr of 7.6. 1. SAE secondary to volume depletion +/- hemodynamic injury in setting of N/V/D + [place]/diuretic 2. Hx of prostate cancer 3. Gastroenteritis Renal function improving with isotonic saline can discontinue IVF at this time FeNa was 0.3% indicating preserved tubular function UA w/o protein or sediment Bladder scan w/o evidence of retention continue supportive care hold ACEi and diuretic for now stable for discharge with outpatient follow up Thank you Angus Choi DO
--- NOTE | 2019-06-16 14:59 | PN ---
Teaching Attending Note Name of Resident: Joseph eHnderson ATTENDING PHYSICIAN STATEMENT I saw and evaluated the patient. I reviewed the resident's note and discussed the case with the resident. I agree with the resident's findings and plan as documented. SUBJECTIVE: Feeling much better, abdominal pain/nausea/vomiting/diarrhea resolved. tolerating oral intake. OBJECTIVE: Afebrile, Hemodynamically Stable. Last Vital Signs Temp Pulse Resp BP Pulse Ox 98.3 F 78 18 120/64 99 06/16/19 09:31 06/16/19 09:31 06/16/19 09:31 06/16/19 09:31 06/15/19 21:00 Heart - S1, S2, RRR Lungs - clear to auscultation Abdomen - Soft, non-tender. Bowel Sounds normal. Extremities - finger clubbing. No edema, no calf tenderness. Laboratory Results - last 24 hr 06/16/19 05:30 Sodium 141 Potassium 3.7 Chloride 114 H Carbon Dioxide 22 Anion Gap 5 L BUN 41.2 H Creatinine 3.5 H Est GFR (CKD-EPI)AfAm 18.42 Est GFR (CKD-EPI)NonAf 15.89 Random Glucose 75 Calcium 8.2 L Current Medications Generic Name Dose Route Start Last Admin Trade Name Freq PRN Reason Stop Dose Admin Acetaminophen 650 mg 06/15/19 01:54 06/15/19 14:03 Tylenol - PO 650 mg Q6H PRN Administration Fever Or Pain Famotidine 20 mg 06/15/19 17:00 06/16/19 09:27 Pepcid PO 20 mg BID NEHEMIAS Administration Heparin Sodium (Porcine) 5,000 unit 06/15/19 22:00 06/16/19 09:28 Heparin - SQ 5,000 unit BID NEHEMIAS Administration Sodium Chloride 1,000 mls @ 100 mls/hr 06/14/19 19:45 06/16/19 13:54 Normal Saline - IV 100 mls/hr ASDIR NEHEMIAS Administration Home Medications Medication Instructions Recorded Aspirin [ASA -] 81 mg PO DAILY 11/14/16 Lisinopril/Hydrochlorothiazide 1 each PO DAILY 11/14/16 [Lisinopril-Hctz 20-12.5 mg Tab] Atorvastatin Ca [Lipitor] 20 mg PO HS 06/14/19 Esomeprazole Magnesium 40 mg PO ONCE 06/14/19 ASSESSMENT/PLAN: 79 year old male with HTN, HLD, Prostate Ca s/p TURP/RTx, Hypospadias s/p incomplete reconstruction, presents with abdominal discomfort, nausea, vomiting , diarrhea, now resolved. No dysuria/hematuria/melena/hematochezia/fever/ chills. CT A/P - bilateral renal cysts, no hydronephrosis. CXR - trachea dev to R ?enlarged thyroid 1. Acute Viral Gastroenteritis Resolved. Afebrile, Hemodynamicaly Stable. Tolerating diet. If any further diarrhea, will culture. No need for Abx currently. 2. SAE sec to ATN due to renal hypoperfusion sec to intravascular volume depletion due to vomiting/diarrhea + Lisinopril/HCTZ. No obstruction on imaging. Continued improvement with IV hydration. Lisinopril/HCTZ held. Further recommendations as per Nephrology 3. Bilateral Renal Cysts, Hx Hypospadias with incomplete reconstruction Seen by urology - no evidence of retention, passing urine spontaneously. Patient declined Mata. For out-patient follow up. 4. HTN - Hypotensive on presentation. Home anti-hypertensives (Norvasc, Lisinopril/HCTZ) held. 5. HLD - normally on Lipitor. 6. Bilateral Renal Cysts - Urology/Nephrology follow up on discharge. 7. Tracheal deviation on Chest imaging. No stridor. Possible thyroid enlargement - for referral to Endocrinology as out-patient for Thyroid imaging and follow up. DVT Px - Heparin SQ GI Px - on PPI
--- NOTE | 2019-06-16 17:13 | PN ---
Physical Exam: SUBJECTIVE: Patient seen and examined. Afebrile and asymptomatic. Pt reports losing his today. She was ill and this morning. The primary team gave our condolences and comforted the pt. Denies f/c/n/v/d/sob OBJECTIVE: Vital Signs Period Temp Pulse Resp BP Sys/Yusuf Pulse Ox Last 24 Hr 97.6 F-98.4 F 73-78 16-20 115-123/56-66 99 GENERAL: Awake, alert, and fully oriented, in no acute distress. EYES: PERRLA, EOMI, EARS, NOSE, THROAT: oropharynx clear without exudates. Dry mucous membranes. NECK: supple LUNGS: Breath sounds equal, clear to auscultation bilaterally. No wheezes, and no crackles. HEART: Regular rate and rhythm, normal S1 and S2 without murmur, rub or gallop. ABDOMEN: Soft, nontender, not distended, hyperactive bowel sounds, no guarding, no rebound, no masses. Mild Suprapubic tenderness MUSCULOSKELETAL: No CVA tenderness. UPPER EXTREMITIES: 2+ pulses, well-perfused. No peripheral edema. Dry LOWER EXTREMITIES: 2+ pulses, well-perfused. No peripheral edema. Dry NEUROLOGICAL: Normal speech. Normal gait. SKIN: Warm, dry, decreased turgor Laboratory Results - last 24 hr Laboratory Results - last 24 hr 06/16/19 05:30 Sodium 141 Potassium 3.7 Chloride 114 H Carbon Dioxide 22 Anion Gap 5 L BUN 41.2 H Creatinine 3.5 H Est GFR (CKD-EPI)AfAm 18.42 Est GFR (CKD-EPI)NonAf 15.89 Random Glucose 75 Calcium 8.2 L Active Medications Generic Name Dose Route Start Last Admin Trade Name Freq PRN Reason Stop Dose Admin Acetaminophen 650 mg 06/15/19 01:54 06/15/19 14:03 Tylenol - PO 650 mg Q6H PRN Administration Fever Or Pain Famotidine 20 mg 06/15/19 17:00 06/16/19 09:27 Pepcid PO 20 mg BID NEHEMIAS Administration Heparin Sodium (Porcine) 5,000 unit 06/15/19 22:00 06/16/19 09:28 Heparin - SQ 5,000 unit BID NEHEMIAS Administration Sodium Chloride 1,000 mls @ 100 mls/hr 06/14/19 19:45 06/16/19 13:54 Normal Saline - IV 100 mls/hr ASDIR NEHEMIAS Administration ASSESSMENT/PLAN: 79 y/o M, pmh of HLD, HTN, prostate cancer s/p TURP + radiation, hypospadias presented to the ED c/o of nausea, nbnb vomit x10/day and nb diarrhea x10/day of 5 day duration is admitted for viral gastroenteritis #Gastroenteritis- Resolved 2/2 to viral due to lack of leukocytosis, afebrile, no findings on CAT scan exposure to sick contacts and contagious environment/hospitals CT a/p: no signs of infxn hydrate pt to replete fluids and electrolytes no abx necessary If diarrhea then Cx #SAE likely 2/2 to prenal hypoperfusion 2/2 to dehydration/volume depletion due to continuous vomiting/diarrhea Improving Will monitor for one more and discharge Dr. Paiz/urology consulted Nephro following #Hypotension 2/2 to volume depletion 2/2 to large voluminous loss of fluids in vomit&diarrhea Hold Hypertensive meds- norvasc 5, lisinopril/HCTZ- 20/17.5 #Elevated Cardiac markers/ ck-mb likely 2/2 to SAE 2/2 now resolved #HLD hold lipitor 20 HS due elevated CK levels #Anuria- resolved cont to monitor #Multiple cysts on b/l kidneys on CT a/p Consider PKD in the setting of family hx of brain aneurysms Urology/nephrology f/u on discharge #Tracheal deviation on Chest imaging Possible thyroid enlargement referral to Endocrinology as out-patient for Thyroid imaging and follow up. DVT ppx heparin sq FEN sodium controlled diet cont fluids monitor lytes Dispo: cont IVF fluids, d/c planning, f/u cre Visit type - Emergency Visit Emergency Visit: Yes ED Registration Date: 06/14/19 Care time: The patient presented to the Emergency Department on the above date and was hospitalized for further evaluation of their emergent condition. - New Patient This patient is new to me today: Yes Date on this admission: 06/17/19 - Critical Care Critical Care patient: No - Discharge Referral Referred to [facility] Med P.C.: No ATTENDING PHYSICIAN STATEMENT I saw and evaluated the patient. I reviewed the resident's note and discussed the case with the resident. I agree with the resident's findings and plan as documented. SUBJECTIVE: OBJECTIVE: ASSESSMENT AND PLAN:
[2019-06-17] MEDS: SODIUM CHLORIDE 1,000 ML IV SCH (01:02)
[2019-06-17 08:01] VITALS: BP 138/71; PULSE 76; TEMP 98.4
[2019-06-17 08:01] LABS: HEMATOCRIT 27.8 % (35.4-49); HEMOGLOBIN 9.4 GM/dL (11.7-16.9); MCH 30.1 pg (25.7-33.7); MCHC 33.9 g/dl (32.0-35.9); MEAN CELL VOLUME 88.7 fl (80-96); MEAN PLT VOLUME 9.1 fl (7.5-11.1); PLATELET COUNT 178 K/MM3 (134-434); RBC 3.14 M/mm3 (4.00-5.60); RDW 15.2 % (11.9-15.9); WHITE BLOOD COUNT 4.7 K/mm3 (4.0-10.0)
[2019-06-17 08:33] LABS: BLOOD UREA NITROGEN 31.6 mg/dL (7-18); CALCIUM 8.2 mg/dL (8.5-10.1); CREATININE 2.5 mg/dL (0.55-1.3); POTASSIUM 3.7 mmol/L (3.5-5.1)
[2019-06-17] MEDS: HEPARIN NA (PORCINE) 5,000 UNITS/ML 1ML VIAL SQ SCH (09:55)
[2019-06-17] MEDS: FAMOTIDINE 40 MG/5 ML ORAL SUSPENSION PO SCH (09:55)
--- NOTE | 2019-06-17 11:26 | PN ---
Progress Note (short form) - Note Progress Note: Renal follow up for SAE Seen and examined at the bedside no acute complaints no N/V/D tolerating meals making urine no sob, cp, fever or chills on IVF Vital Signs Temperature 98.4 F 06/17/19 07:59 Pulse Rate 76 06/17/19 07:59 Respiratory Rate 18 06/17/19 07:59 Blood Pressure 138/71 06/17/19 07:59 O2 Sat by Pulse Oximetry (%) 100 06/17/19 09:00 Intake & Output 06/14/19 06/15/19 06/16/19 06/17/19 23:59 23:59 23:59 23:59 Intake Total 500 2100 2250 1200 Output Total 1025 700 Balance 500 1075 1550 1200 Weight 59.647 kg 61.263 kg 61.235 kg 62.737 kg NAD RRR, no M/R CTA, no rales or wheeze soft NT/ND slight bladder distension no LE edema, clubbing or cyanoiss CBC, BMP 06/17/19 06:45 06/17/19 06:30 Current Medications Acetaminophen (Tylenol -) 650 mg PO Q6H PRN PRN Reason: Fever Or Pain Last Admin: 06/15/19 14:03 Dose: 650 mg Famotidine (Pepcid) 20 mg PO BID [facility] Last Admin: 06/17/19 09:55 Dose: Not Given Heparin Sodium (Porcine) (Heparin -) 5,000 unit SQ BID [facility] Last Admin: 06/17/19 09:55 Dose: Not Given 79 year old gentleman with history of hypertension, prostate cancer s/p TURP who presented with 1 week history of N/V/D and found to have SAE with serum Cr of 7.6. 1. SAE secondary to volume depletion +/- hemodynamic injury in setting of N/V/D + [place]/diuretic 2. Hx of prostate cancer 3. Gastroenteritis Renal function improved. No electrolyte or acid/base disturbances. d/c IV fluids FeNa was 0.3% indicating preserved tubular function UA w/o protein or sediment Bladder scan w/o evidence of retention continue supportive care hold ACEi and diuretic on discharge until renal function improves to baseline. stable for discharge with outpatient follow up office contact information provided Thank you Angus Choi DO
--- NOTE | 2019-06-17 12:01 | PN ---
Teaching Attending Note Name of Resident: Joseph Henderson ATTENDING PHYSICIAN STATEMENT I saw and evaluated the patient. I reviewed the resident's note and discussed the case with the resident. I agree with the resident's findings and plan as documented. SUBJECTIVE: OBJECTIVE: Vital Signs Period Temp Pulse Resp BP Sys/Yusuf Pulse Ox Last 24 Hr 98.1 F-98.7 F 60-76 18-20 116-138/58-71 99-100 Laboratory Results - last 24 hr 06/17/19 06/17/19 06:30 06:45 WBC 4.7 RBC 3.14 L Hgb 9.4 L Hct 27.8 L MCV 88.7 MCH 30.1 MCHC 33.9 RDW 15.2 Plt Count 178 MPV 9.1 Sodium 143 Potassium 3.7 Chloride 115 H Carbon Dioxide 21 Anion Gap 7 L BUN 31.6 H Creatinine 2.5 H Est GFR (CKD-EPI)AfAm 27.67 Est GFR (CKD-EPI)NonAf 23.87 Random Glucose 70 L Calcium 8.2 L Current Medications Generic Name Dose Route Start Last Admin Trade Name Freq PRN Reason Stop Dose Admin Acetaminophen 650 mg 06/15/19 01:54 06/15/19 14:03 Tylenol - PO 650 mg Q6H PRN Administration Fever Or Pain Famotidine 20 mg 06/15/19 17:00 06/17/19 09:55 Pepcid PO Not Given BID NEHEMIAS Heparin Sodium (Porcine) 5,000 unit 06/15/19 22:00 06/17/19 09:55 Heparin - SQ Not Given BID NEHEMIAS ASSESSMENT AND PLAN:
--- NOTE | 2019-06-17 12:49 | DS ---
Physical Exam: SUBJECTIVE: Patient seen and examined. Afebrile and asymptomatic. Pt reports losing his today. She was ill and this morning. Denies f/c/n/v/d/sob OBJECTIVE: Vital Signs Period Temp Pulse Resp BP Sys/Yusuf Pulse Ox Last 24 Hr 98.1 F-98.7 F 60-76 18-20 116-138/58-71 99-100 PHYSICAL EXAM GENERAL: Awake, alert, and fully oriented, in no acute distress. EYES: PERRLA, EOMI, EARS, NOSE, THROAT: oropharynx clear without exudates. Dry mucous membranes. NECK: supple LUNGS: Breath sounds equal, clear to auscultation bilaterally. No wheezes, and no crackles. HEART: Regular rate and rhythm, normal S1 and S2 without murmur, rub or gallop. ABDOMEN: Soft, nontender, not distended, hyperactive bowel sounds, no guarding, no rebound, no masses. MUSCULOSKELETAL: No CVA tenderness. UPPER EXTREMITIES: 2+ pulses, well-perfused. No peripheral edema. Dry LOWER EXTREMITIES: 2+ pulses, well-perfused. No peripheral edema. Dry NEUROLOGICAL: Normal speech. Normal gait. SKIN: Warm, dry, decreased turgor LABS Laboratory Results - last 24 hr 06/17/19 06/17/19 06:30 06:45 WBC 4.7 RBC 3.14 L Hgb 9.4 L Hct 27.8 L MCV 88.7 MCH 30.1 MCHC 33.9 RDW 15.2 Plt Count 178 MPV 9.1 Sodium 143 Potassium 3.7 Chloride 115 H Carbon Dioxide 21 Anion Gap 7 L BUN 31.6 H Creatinine 2.5 H Est GFR (CKD-EPI)AfAm 27.67 Est GFR (CKD-EPI)NonAf 23.87 Random Glucose 70 L Calcium 8.2 L Home Medications Medication Instructions Recorded Aspirin [ASA -] 81 mg PO DAILY 11/14/16 Atorvastatin Ca [Lipitor] 20 mg PO HS 06/14/19 Esomeprazole Magnesium 40 mg PO ONCE 06/14/19 Docusate Sodium [Colace -] 100 mg PO DAILY #7 capsule 06/17/19 Famotidine [Pepcid] 20 mg PO BID #60 tablet 06/17/19 Microbiology 06/15/19 15:45 Urine - Urine Clean Catch Urine Culture - Final NO GROWTH OBTAINED HOSPITAL COURSE: Date of Admission:06/14/19 79 y/o M, pmh of HLD, HTN, prostate cancer s/p TURP + radiation, hypospadias presented to the ED c/o of nausea, nbnb vomit x10/day and nb diarrhea x10/day of 5 day duration is admitted for viral gastroenteritis 2/2 to viral due to lack of leukocytosis, afebrile, no findings on CAT scan. Pt was treated with fluids, antiemetic and antidiarrheals. Pt however also had SAE w/ cre of 7.6 due to SAE likely 2/2 to prenal hypoperfusion 2/2 to dehydration/volume depletion due to continuous vomiting/diarrhea, which lead to Hypokalemia2/2 to emesis from volume depletion/metabolic alkalosis leading to increased renal potassium excretion, as well as nathen effect. Pt was also found to be Hypotensive 2/2 to volume depletion 2/2 to large voluminous loss of fluids in vomit&diarrhea but after aggressive hydration, BP at 108/80. We held Hypertensive meds- norvasc 5, lisinopril/HCTZ- 20/17.5. Nephrology was consulted and recommended aggressive hydration. Urology was also consulted due to pt's hx of hypospadias. Pt was discharged with advise to stop lisinopril-HCTZ and sent home on docusate and pepcid. Pt was also given referral for nephro due to Multiple cysts on b/l kidneys on CT a/p and family hx of brain aneurysms. Also given referral to endocinology due to an enlarged thyroid on imaging. CXR: enlarged thyroid, tracheal deviation to the right CT a/p: no signs of infxn, diveritculosis w/ no diverticulitis on [place] read, multiple renal cyst seen Date of Discharge: 06/17/19 Minutes to complete discharge: 40 Discharge Summary Problems reviewed: Yes Reason For Visit: ACUTE KIDNEY INJURY Condition: Good - Instructions Diet, Activity, Other Instructions: You were admitted to the hospital for nausea, vomiting and diarrhea While in the hospital, we evaluated you with lab work, blood work, imaging including CAT scans of your abdomen. We found that your symptoms were likely caused by a Viral infection of your stomach. We treated you with medications and your symptoms improved. The dehydration from your diarrhea and vomiting had an effect of your kidneys, which required medications to resolve. We made some changes to your medications, please take the following medications as prescribed; Please STOP taking Lisinopril-Hydrochlorothiazide You may START taking Pepcid 20 mg twice a day as needed to reduce acidity in your stomach You may take Colace as needed for constipation Please ensure that you are drinking adequate fluids daily. We recommend that you consume at least 1.7 liters per day, which corresponds to at least 57.5 fluid ounces. Hydrating your self appropriately can prevent damage to the kidneys and several other conditions. Continue taking all your medications as prescribed On your imaging, we found that you may have an enlarged thyroid which will need to be followed up with your [facility] to repeat a scan of your thyroid On imaging, we also found that you have multiple cysts on your kidneys, which will need to be followed up with your [facility] Follow Up Please follow up with your primary care physician, Dr. Marques, within 1 week to repeat your blood work (CBC+CMP). Please follow up with your [facility] Associate, Dr. Choi, within 1 week. Please follow up with your Urologist, Dr. Kemp within 1 week. Please follow up with your the Wire Weaver, Dr. Wu within 1-2 weeks Return to the emergency room, if you experience worsening of your symptoms, chest pain, abdominal pain, fevers or any worsening of your condition. Referrals: Solomon Marques MD [Primary Care Provider] - 1 Week Abdias Kemp MD [Staff Physician] - 1 Week Angus Choi MD [Staff Physician] - 1 Week Kathi Wu MD [Staff Physician] - 1 Week Disposition: HOME - Home Medications Comprehensive Discharge Medication List: Ambulatory Orders Aspirin [ASA -] 81 mg PO DAILY 11/14/16 Atorvastatin Ca [Lipitor] 20 mg PO HS 06/14/19 Esomeprazole Magnesium 40 mg PO ONCE 06/14/19 Docusate Sodium [Colace -] 100 mg PO DAILY #7 capsule 06/17/19 Famotidine [Pepcid] 20 mg PO BID #60 tablet 06/17/19 This patient is new to me today: Yes Date on this admission: 06/17/19 Emergency Visit: Yes ED Registration Date: 06/14/19 Care time: The patient presented to the Emergency Department on the above date and was hospitalized for further evaluation of their emergent condition. Critical Care patient: No - Discharge Referral Referred to [facility] Med [facility].C[facility] No ATTENDING PHYSICIAN STATEMENT I saw and evaluated the patient. I reviewed the resident's note and discussed the case with the resident. I agree with the resident's findings and plan as documented. SUBJECTIVE: OBJECTIVE: ASSESSMENT AND PLAN:
== END 2019-06-17 13:57 | disposition home or self-care (01) | DRG 391 ==
LOC: JER 13:23 → JERBED 16:45 → J7W 19:52
PROVIDERS: ADMIT Internal Medicine; ATTEND Internal Medicine
DX: A08.4 Viral intestinal infection, unspecified (principal); N17.0 Acute kidney failure with tubular necrosis; E87.3 Alkalosis; E86.0 Dehydration; I95.9 Hypotension, unspecified; N28.1 Cyst of kidney, acquired; E87.6 Hypokalemia; E86.9 Volume depletion, unspecified; J39.8 Other specified diseases of upper respiratory tract; I10 Essential (primary) hypertension; Z85.46 Personal history of malignant neoplasm of prostate; E78.5 Hyperlipidemia, unspecified
CPT/HCPCS: 36415; 71045-TC-FY; 74176-TC; 80048; 80053; 81003; 82550; 82553; 82565; 83735; 83935; 84100; 84300; 84443; 84484; 85025; 85027; 87086; 93005; 93010; 97116-GP; 97161-GP; 99285-25; J0131; J1644; J7030

== ENCOUNTER 2021-12-05 15:07 | Emergency (ER) | payer OTHER ==
[2021-12-05 15:31] VITALS: TEMP 97.6; BMI 22.2
[2021-12-05] MEDS ORDERED: ONDANSETRON 4 MG/2 ML VIAL IVPB ONE (17:49)
[2021-12-05] MEDS ORDERED: ACETAMINOPHEN 1000 MG/100 ML BAG IVPB ONE (17:50)
[2021-12-05] MEDS ORDERED: SODIUM CHLORIDE 500 ML IV STA ×2 (18:15→19:45)
[2021-12-05] MEDS ORDERED: ONDANSETRON 4 MG/2 ML VIAL ONE (18:16)
[2021-12-05 18:40] LABS: BASO % 0.2 % (0-2.0); EOS % 0.2 % (0-4.5); HEMATOCRIT 40.4 % (35.4-49); HEMOGLOBIN 13.4 GM/dL (11.7-16.9); MCHC 33.2 g/dl (32.0-35.9); MEAN CELL VOLUME 90.5 fl (80-96); MONO % 5.7 % (3.8-10.2); NEUT % 85.9 % (42.8-82.8); RBC 4.47 M/mm3 (4.00-5.60); RDW 16.1 % (11.9-15.9); WHITE BLOOD COUNT 10.5 K/mm3 (4.0-10.0)
[2021-12-05] MEDS ORDERED: ACETAMINOPHEN INJECTION 100 ML IVPB ONE (18:59)
[2021-12-05 19:04] LABS: ALBUMIN 4.7 g/dl (3.4-5.0); CALCIUM 10.9 mg/dL (8.5-10.1)
[2021-12-05 19:05] LABS: BLOOD UREA NITROGEN 26.2 mg/dL (7-18)
[2021-12-05 19:07] LABS: CREATININE 2.3 mg/dL (0.55-1.3)
[2021-12-05 19:08] LABS: PLATELET COUNT 186 10^3/uL (134-434)
[2021-12-05 19:09] LABS: BILIRUBIN,TOTAL 0.8 mg/dL (0.2-1); TOT PROT 8.8 g/dl (6.4-8.2)
[2021-12-05 19:51] VITALS: BP 144/77; PULSE 88; RESP 16
[2021-12-05 22:40] LABS: EPI CELLS 2 /uL (0-25.1); HYALINE CASTS 0 /uL (0-3.1); URINE APPEARANCE CLEAR; URINE BACTERIA 28 /uL (0-1359); URINE BILIRUBIN NEGATIVE (NEGATIVE); URINE COLOR YELLOW; URINE GLUCOSE (UA) NEGATIVE (NEGATIVE); URINE KETONE 1+ (NEGATIVE); URINE LEUK ESTERASE NEGATIVE (NEGATIVE); URINE NITRITE NEGATIVE (NEGATIVE); URINE PROTEIN 2+ (NEGATIVE); URINE RBC 24 /uL (0-23.9); URINE UROBILINOGEN 0.2 mg/dL (0.2-1.0); URINE WBC 2 /uL (0-25.8)
== END 2021-12-05 22:55 | disposition home or self-care (01) ==
LOC: JER 15:07
PROC: 3E033NZ Introduction of Analgesics, Hypnotics, Sedatives into Peripheral Vein, Percutaneous Approach (ICD-10-PCS; principal; 2021-12-05)
PROC: 3E033GC Introduction of Other Therapeutic Substance into Peripheral Vein, Percutaneous Approach (ICD-10-PCS; 2021-12-05)
PROC: 3E0337Z Introduction of Electrolytic and Water Balance Substance into Peripheral Vein, Percutaneous Approach (ICD-10-PCS; 2021-12-05)
PROC: 3E0337Z Introduction of Electrolytic and Water Balance Substance into Peripheral Vein, Percutaneous Approach (ICD-10-PCS; 2021-12-05)
DX: R11.2 Nausea with vomiting, unspecified (principal); R19.7 Diarrhea, unspecified; N18.30 Chronic kidney disease, stage 3 unspecified
CPT/HCPCS: 36415; 71046-TC-FY; 80053; 81003; 83605; 83690; 84484; 85025; 93005; 93010; 99284-25

== ENCOUNTER 2022-11-06 09:29 | Emergency (ER) | payer OTHER ==
[2022-11-06 09:40] VITALS: TEMP 98.6; BMI 23.8
[2022-11-06] MEDS ORDERED: IBUPROFEN 600 MG TABLET (FP) PO ONE ×2 (11:02→11:55)
[2022-11-06] MEDS ORDERED: LIDOCAINE 5% TOPICAL PATCH TP ONE (11:29)
[2022-11-06] MEDS ORDERED: ACETAMINOPHEN 325 MG TABLET (FP) PO ONE (11:29)
[2022-11-06 11:34] LABS: BASO % 0.6 % (0-2.0); EOS % 1.8 % (0-4.5); HEMATOCRIT 35.9 % (35.4-49); HEMOGLOBIN 11.9 GM/dL (11.7-16.9); LYMPH % 16.5 % (8-40); MCH 29.4 pg (25.7-33.7); MEAN PLT VOLUME 8.9 fl (7.5-11.1); MONO % 10.7 % (3.8-10.2); NEUT % 70.4 % (42.8-82.8); PLATELET COUNT 214 10^3/uL (134-434); RBC 4.03 M/mm3 (4.00-5.60); RDW 16.1 % (11.9-15.9); WHITE BLOOD COUNT 5.8 K/mm3 (4.0-10.0)
[2022-11-06] MEDS ORDERED: ACETAMINOPHEN 325 MG TABLET (FP) ONE (11:55)
[2022-11-06 11:56] LABS: POTASSIUM 3.6 mmol/L (3.5-5.1)
[2022-11-06] MEDS ORDERED: LIDOCAINE 5% TOPICAL PATCH ONE (11:56)
[2022-11-06 11:58] LABS: CALCIUM 10.8 mg/dL (8.5-10.1)
[2022-11-06 11:59] LABS: ALBUMIN 4.4 g/dl (3.4-5.0); BLOOD UREA NITROGEN 34.6 mg/dL (7-18)
[2022-11-06 12:02] LABS: CREATININE 2.8 mg/dL (0.55-1.3)
[2022-11-06 12:04] LABS: BILIRUBIN,TOTAL 0.3 mg/dL (0.2-1); TOT PROT 8.7 g/dl (6.4-8.2)
[2022-11-06 12:31] VITALS: RESP 18
[2022-11-06 15:07] VITALS: BP 137/68; PULSE 80
== END 2022-11-06 15:30 | disposition home or self-care (01) ==
LOC: JER 09:29
DX: S29.011A Strain of muscle and tendon of front wall of thorax, initial encounter (principal); R07.89 Other chest pain; R07.81 Pleurodynia; X50.3XXA Overexertion from repetitive movements, initial encounter; Y93.B9 Activity, other involving muscle strengthening exercises; Y92.9 Unspecified place or not applicable
CPT/HCPCS: 36415; 71101-TC-RT-FY; 80053; 84484; 85025; 93005; 93010; 99285-25